=== PATIENT | male | born 1965 | race Caucasian/White ===

== ENCOUNTER 2024-05-21 06:32 | Emergency (ER) | payer OTHER, MEDICARE, SELFPAY ==
--- NOTE | ~2024-05-21 | XR_ITS ---
CLINICAL HISTORY: back pain Exam: AP, lateral, spot lateral views of the lumbar spine. Comparison: December 27, 2022. Findings: Minimal convex left lower lumbar curvature as seen previously. Lateral view demonstrates straightening of the normal lumbar lordosis. Severe degenerative disc disease at L4-5 and L5-S1 with disc space narrowing, discogenic sclerosis, and osteophytic ridging. Moderate degenerative disc disease at L3-4. Moderate to severe facet joint degenerative change from L2-3 inferiorly. No fracture. Impression: Multilevel degenerative disc disease and degenerative facet disease as above. This document has been electronically signed by: Feliciano Ko MD on 05/21/2024 08:48:31
[2024-05-21 06:39] VITALS: BP 142/85; PULSE 75; RESP 18; TEMP 36.8; O2SAT 98; BMI 37.2
--- NOTE | 2024-05-21 07:55 | ED_ITS ---
HPI - Back Pain/Injury General Chief Complaint: Back Pain/Injury Stated Complaint: sciatica, left leg pain Time Seen by Provider: 05/21/24 07:55 Source: patient Mode of arrival: ambulatory Limitations: no limitations History of Present Illness ED Provider: DR. Bennett HPI Narrative: 58 year came in for evaluation of low back and left buttock cheek pain for 5 days, pain is getting worse shooting down to the left leg, patient was seen by PCP last week for the back pain had CT chest , abdomen and pelvis ordered by PCP the was done at [facility] last week patient was told by the PCP that CT was okay. Patient had back surgery many years ago as per patient multiple level of a disc disease in the lumbar spine since then patient is on oxycodone for pain control, history of prostate cancer. Patient declined any fever, no urinary incontinence, normal urination, normal bowel movement this morning, no weakness, slight numbness affecting the left thigh. No history of IV drug use. No dysuria, no frequency urination. Related Data Previous Rx's ?Medication ?Instructions ?Recorded oxycodone 5 mg capsule 5 mg PO Q8H PRN pain 3 days #9 caps 12/15/22 cyclobenzaprine 10 mg tablet 10 mg PO TID PRN muscle spasm #15 12/27/22 tabs dexamethasone 4 mg tablet 4 mg PO BID #6 tabs 12/27/22 Allergies Allergy/AdvReac Type Severity Reaction Status Date / Time No Known Allergies Allergy Verified 05/21/24 06:40 Review of Systems Review of Systems: All other systems are reviewed and are negative Constitutional: Reports as per HPI and Reports no additional constitutional complaints Eyes: Reports as per HPI and Reports no additional eye complaints Reports system reviewed and no additional complaints, except as documented Cardiovascular: Reports as per HPI and Reports no additional cardiovascular complaints Respiratory: Reports as per HPI and Reports no additional respiratory complaints Gastrointestinal: Reports as per HPI and Reports no additional gastrointestinal complaints Genitourinary: Reports no additional female genitourinary complaints Musculoskeletal: Reports no additional musculoskeletal complaints Skin/Breast: Reports system reviewed and no additional complaints, except as docu Psychiatric: Reports no additional psychiatric complaints Endocrine: Reports no additional endocrine complaints Hematologic/Lymphatic: Reports no additional hematologic/lymphatic complaints Allergic/Immunologic: Reports no additional allergic/immunologic complaints Reports system reviewed and no additional complaints, except as documented and Reports Abnormal speech present [facility] Social History Social History Advance Directives: No Advance Directives Information Provided: Yes Do you have a plan to hurt others: No Plan Physical Exam Vital Signs: Vital Signs: Last Vital Signs Temp 98.2 F 05/21/24 06:39 Pulse 75 05/21/24 06:39 Resp 18 05/21/24 06:39 BP 142/85 H 05/21/24 06:39 Pulse Ox 98 05/21/24 06:39 O2 Del Method Room Air 05/21/24 06:39 BMI result Body Mass Index 37.2 Vital signs have been reviewed and appear to be correct. Blood pressure elevated. Heart rate normal. Respiratory rate normal. Temperature normal. Oxygen saturation normal. Appearance: Alert. Oriented X3. No acute distress. Head: Normal external exam. Normocephalic. Atraumatic. No Maciel signs noted. No raccoon eyes noted Eyes: PERRLA. EOMI. Conjunctiva and sclera normal. Eyelids normal. ENT: TM's Normal. Pharynx normal. Uvula midline. Moist mucous membranes. No trismus noted. No drooling noted. No muffled voice noted. Neck: Normal inspection. Neck supple. FROM. No adenopathy. Thyroid Normal. No meningeal signs. No neck mass noted. CVS: Normal heart rate and rhythm. Heart sound normal. No murmurs noted. Pulses normal throughout. Respiratory: No respiratory distress. Painless inspiration. Breath sounds normal. No wheezes/rales/rhonchi noted. Chest nontender. No accessory muscle usage noted or decreased air movement noted. Abdomen: Soft and nontender. Bowel sounds normal in all 4 quadrants. No distention noted. No organomegaly noted. No visible injury noted. Back: No CVA tenderness. Full range of motion noted. Skin: Skin warm and dry. Normal skin color. Normal skin turgor. No rashes/lesions/lacerations noted. Extremities: No lower extremity edema. Extremities exhibit normal range of motion. Extremities nontender. Neuro: Mental status: Normal attention, orientation, memory, and affect. Cranial nerves: Pupils are equal, round and reactive to light, EOMI, visual gomez are fall, face is symmetric, facial sensations are normal. Motor examination normal muscle tone, strength to 4 extremities. able to ambulate on both toes and heels. DTR are +2, planter's are flexor. Sensory exam; normal coordination, no ataxia, gait stable. Cerebellar exam: [id number] and [id number] is normal. Extrapyramidal system: No tremors, no rigidity with normal facial expressions. Pronator drift not present Course Reevaluation(s) Reevaluation #1: CT chest / abdomen / pelvis done on 05/13/2024 at [facility] official report: No evidence of intra-abdominal or retroperitoneal soft tissue metastases, new skeletal lesions, or other significant intervals change from a 06/18/2023. Time: 08:40 Reevaluation #2: patient feels much better able to ambulate in the emergency department with less pain, perianal sensation is intact, able to ambulate on toes heels, a no symptoms or signs of cauda equina, likely diagnosis is left lumbar radiculopathy. he is a chronic narcotic patient, patient was instructed to follow-up with his PCP if pain is worse. Time: 09:23 Medications Administered Discontinued Medications Generic Name Dose Route Start Last Admin Trade Name Freq PRN Reason Stop Dose Admin Hydromorphone HCl 2 mg 05/21/24 08:03 05/21/24 08:18 Hydromorphone Hcl 2 Mg/Ml Vial IM 05/21/24 08:04 2 mg ONCE ONE Administration Protocol Ketorolac Tromethamine 15 mg 05/21/24 08:03 05/21/24 08:18 Ketorolac Tromethamine 15 Mg/Ml Vial IM 05/21/24 08:04 15 mg ONCE ONE Administration Medical Decision Making Differential Diagnosis Differential Diagnoses: The differential diagnosis associated with the presentation includes ( lumbar radiculopathy, cauda equina syndrome, epidural abscess, pyelonephritis.) Admission/Observation Consideration of admission/observation: Escalation of care including admission/observation considered Lab Data MDM Lab Attestation statement: I reviewed the patient's lab results. Labs: Lab Results 05/21/24 Range/Units 08:46 Urine Color Yellow Urine Appearance Clear Urine pH 7.0 (5.0-9.0) Ur Specific [place] 1.010 (1.005-1.025) Urine Protein Negative (Neg-Trace) mg/dL Urine Glucose (UA) Negative (Negative) mg/dL Urine Ketones Negative (Negative) mg/dL Urine Blood Negative (Negative) Urine Nitrite Negative (Negative) Ur Leukocyte Esterase Negative (Negative) Independent Interpretation I performed an independent interpretation of an: Plain X-Ray ( lumbar spine:Multilevel degenerative disc disease and degenerative facet disease as above.) Radiology Impression Discussion of test interpretation with radiology: I have reviewed the radiologist's reading. Discharge Plan Discharge Clinical Impression: Lumbar radiculopathy Patient Disposition: Home, Self-Care Instructions: Lumbar Radiculopathy (ED) Prescriptions: No Action oxycodone 5 mg capsule 5 mg PO Q8H PRN (Reason: pain) 3 Days Qty: 9 0RF Rx Instructions: Partial Fill upon patient request. cyclobenzaprine 10 mg tablet 10 mg PO TID PRN (Reason: muscle spasm) Qty: 15 0RF dexamethasone 4 mg tablet 4 mg PO BID Qty: 6 0RF Referrals: Amee Sarabia MD [Primary Care Provider] - Print Language: Sri Lankan
[2024-05-21] MEDS: Ketorolac Tromethamine 15 MG/ML VIAL IM (08:18)
[2024-05-21] MEDS: HYDROmorphone HCl 2 MG/ML VIAL IM (08:18)
[2024-05-21 08:57] LABS: Appearance Urine Clear; Color Urine Yellow; Glucose Urine UA Negative (Negative); Leukocyte Esterase Urine Negative (Negative); Nitrite Urine Negative (Negative); Urine Blood Negative (Negative); Urine Ketones Negative (Negative); Urine Protein Negative (Neg-Trace)
[2024-05-21 10:00] VITALS: BP 133/79; PULSE 66; RESP 16; TEMP 36.6; O2SAT 94
== END 2024-05-21 10:01 | disposition home or self-care (01) ==
PROVIDERS: Emergency Provider Emergency Medicine; PCP Internal Medicine
DX: M54.16 Radiculopathy, lumbar region (principal); M54.42 Lumbago with sciatica, left side; C61 Malignant neoplasm of prostate; C79.51 Secondary malignant neoplasm of bone
CPT/HCPCS: 72100; 81003; 96372; 99283; 99284; J1171; J1885

== ENCOUNTER → 2024-05-21 08:14 | Outpatient (BNV) | payer OTHER, MEDICARE, SELFPAY | PROVIDERS: Emergency Provider Emergency Medicine; PCP Internal Medicine; Visit Provider Radiology Diagnostic Radiology | DX: M51.360 Other intervertebral disc degeneration, lumbar region with discogenic back pain only (principal) | CPT/HCPCS: 72100 ==

== ENCOUNTER 2024-05-22 01:07 | Emergency (ER) | payer OTHER, MEDICARE, SELFPAY ==
[2024-05-22 01:11] VITALS: BP 132/72; PULSE 68; RESP 16; TEMP 36.9; O2SAT 96; BMI 37.0
--- NOTE | 2024-05-22 02:13 | ED.BACK ---
HPI - Back Pain/Injury General Chief Complaint: Back Pain/Injury Stated Complaint: left leg numb Time Seen by Provider: 05/22/24 02:12 Source: patient Mode of arrival: ambulatory Limitations: no limitations History of Present Illness ED Provider: HPI Narrative: Patient with history of chronic low back pain on oxycodone was seen here yesterday for the same comes here as the pain is coming back radiating to the left leg as in the past no recent injury Related Data Previous Rx's ?Medication ?Instructions ?Recorded oxycodone 5 mg capsule 5 mg PO Q8H PRN pain 3 days #9 caps 12/15/22 cyclobenzaprine 10 mg tablet 10 mg PO TID PRN muscle spasm #15 12/27/22 tabs dexamethasone 4 mg tablet 4 mg PO BID #6 tabs 12/27/22 cyclobenzaprine 10 mg tablet 10 mg PO Q8H #20 tabs 05/22/24 Allergies Allergy/AdvReac Type Severity Reaction Status Date / Time No Known Allergies Allergy Verified 05/22/24 01:14 Review of Systems Review of Systems: Yes all other systems are reviewed and are negative [facility] Social History Social History Smoked in Last 30 Days: No Use of substances other than those prescribed or required for medical reasons: No Advance Directives: No Do you have a plan to hurt others: No Plan Physical Exam Vital Signs: Vital Signs: Last Vital Signs Temp 98.5 F 05/22/24 03:05 Pulse 68 05/22/24 03:05 Resp 16 05/22/24 03:05 BP 132/72 05/22/24 03:05 Pulse Ox 96 05/22/24 03:05 O2 Del Method Room Air 05/22/24 03:05 BMI result Body Mass Index 37.0 Appearance: Alert. Oriented X3. No acute distress. Eyes: PERRLA, No Nystagmus ENT: Pharynx normal. Oral Mucosa moist Neck: Normal inspection. Neck supple. CVS: Normal heart rate and rhythm. Pulses normal. Respiratory: No respiratory distress. Equal air entry bilateral, no wheezing/rales/rhonchi Abdomen: Soft and nontender. Bowel sounds are present, no mass palpable, no CVA tenderness Skin: Skin warm and dry. Normal skin color. Normal skin turgor. Extremities: No lower extremity edema. No calf tenderness back: Diffuse tenderness in lumbar area SLR positive left leg Neuro: Oriented X 3. No motor deficit. No sensory deficit.No cerebellar signs , cranial nerves II-XII intact Medications Administered Discontinued Medications Generic Name Dose Route Start Last Admin Trade Name Freq PRN Reason Stop Dose Admin Cyclobenzaprine HCl 10 mg 05/22/24 02:21 05/22/24 02:46 Cyclobenzaprine Hcl 10 Mg Tablet PO 05/22/24 02:22 10 mg ONCE ONE Administration Ketorolac Tromethamine 60 mg 05/22/24 02:21 05/22/24 02:45 Ketorolac Tromethamine 60 Mg/2 Ml Vial IM 05/22/24 02:22 60 mg ONCE ONE Administration Medical Decision Making Medical Decision Making [facility] Narrative: Patient has chronic low back pain referred to pain clinic will give a course of muscle relaxants and patient is already taking oxycodone at home Discharge Plan Discharge Clinical Impression: Sciatica Patient Disposition: Home, Self-Care Instructions: Sciatica (ED) Additional Instructions: Continue pain medication Take muscle relaxant as prescribed Follow up with pain clinic Prescriptions: New cyclobenzaprine 10 mg tablet 10 mg PO Q8H Qty: 20 0RF No Action oxycodone 5 mg capsule 5 mg PO Q8H PRN (Reason: pain) 3 Days Qty: 9 0RF Rx Instructions: Partial Fill upon patient request. cyclobenzaprine 10 mg tablet 10 mg PO TID PRN (Reason: muscle spasm) Qty: 15 0RF dexamethasone 4 mg tablet 4 mg PO BID Qty: 6 0RF Referrals: Timothy Mas MD [Physician] - 2 weeks Interventions: ED Discharge Assessment Last Done: 05/22/24 03:05 Discharge Date/Time: 05/22/24 03:05 Print Language: Portuguese
[2024-05-22] MEDS: Ketorolac Tromethamine 60 MG/2 ML VIAL IM (02:45)
[2024-05-22] MEDS: Cyclobenzaprine HCl 10 MG TABLET PO (02:46)
[2024-05-22 03:05] VITALS: BP 132/72; PULSE 68; RESP 16; TEMP 36.9; O2SAT 96
== END 2024-05-22 03:05 | disposition home or self-care (01) ==
PROVIDERS: Emergency Provider Internal Medicine; PCP Internal Medicine
DX: M54.42 Lumbago with sciatica, left side (principal)
CPT/HCPCS: 96372; 99284; J1885

== ENCOUNTER 2024-05-30 10:06 | Outpatient (AMB) | payer OTHER, MEDICARE, SELFPAY ==
--- NOTE | 2024-05-30 10:07 | A.OFFVIS_ITS ---
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 He reports that this pain started 3 weeks ago. He woke up from this pain. Because of his pain he can not sleep normally can not do activities of daily living he can not take care of himself but he can not function normally. He is on permanent disability. According to the patient he had unknown level of lumbar fusion. He had multiple level disc degeneration of the lumbar spine. He also was diagnose in 2019 with prostate cancer and he was treated with robotic prostatectomy, and after that surgery his PSA numbers continued to grow and he go to [facility] radiology department's where he received radiation for for the metastasis in the lumbar spine. He is currently taking oxycodone 5 mg 4 times a day for his pain. In terms of tissue damage he describes his pain as stabbing, lancinating, pinching, cramping, crushing, dull, sore, hurting, aching, heavy sensation. The last examination of the abdominal and pelvic CT scan was done at [facility]. The results of this examination is not available for me. Apparently patient was told that results are okay. His past medical history significant for arthritis and asthma. Past surgical history significant for prostatectomy and lumbar surgery. He denies smoking cigarettes denies drinking alcohol drinks 2 cups of coffee a day and he denies recreational drugs. Review of Systems Const All systems reviewed & are unremarkable except as noted in HPI and below ENT Reports Normal hearing present Card Reports no additional complaints Resp Reports no additional complaints GI Reports no additional complaints Reports as per HPI Musc Reports as per HPI Neuro Reports no additional complaints, Reports Normal hearing present, Denies Abnormal speech present, Denies confusion and Denies Sensory deficit (Neuro) Psych Reports no additional complaints and Denies confusion Physical Exam Vital Signs: Last Vital Signs Pulse 95 05/30/24 10:13 BP 160/101 H 05/30/24 10:13 Pulse Ox 97 05/30/24 10:13 Oxygen Delivery Method Room Air 05/30/24 10:13 BMI result Body Mass Index 36.8 Const General: no acute distress; No confusion Nutritional Appearance: obese morbidly obese Orientation/consciousness: patient oriented x3 and No confusion Eyes General: appearance normal, both eyes and all related structures Pupils: Equal, round and reactive pupils present EOM: EOMs intact bilaterally Neck Neck: Yes full ROM Chest Chest palpation & inspection: normal inspection of the chest Resp Effort & Inspection: normal respiratory effort, able to speak in complete sentences, normal respiratory pattern, no audible wheezes and no cough Cardio Jugular venous distension: no JVD GI Inspection: Yes normal to inspection Back/Spine/Pelvis Other: There is tenderness on palpation in projection of paraspinal spinal region lumbar spine. In projection of L3-L4 and L5 spinous processes there is very thin very well-healed scar radiating previous surgery. There is no inflammation no swelling no redness around the scar. Able to stand on bilateral tiptoes in bilateral heels without difficulty. Reports numbness in the left lower extremity. SLR is positive on the left and equivocal on the right. Neuro General: patient oriented x3, gait normal and No confusion Cranial nerves: Yes CN's II-XII intact bilaterally, Yes Equal, round and reactive pupils present, Yes Normal hearing present and Yes Ability to bilaterally elevate shoulders present Speech: No Abnormal speech present Gait exam (Neuro): Normal gait present Motor exam (neuro): 5/5 motor strength present throughout Sensory Exam: No Sensory deficit (Neuro) Extrem General: No pedal edema Psych Speech and movement: Normal speech and movement present Affect: normal affect Attitude: cooperative Thought process: Normal thought process present Thought content: Normal thought content present Insight: Good insight present (Psych) Judgement: Good judgement present (Psych) Assessment & Plan Assessment & Plan (1) Postlaminectomy syndrome: Code(s): M96.1 - Postlaminectomy syndrome, not elsewhere classified Category: Medical (2) Prostate cancer metastatic to bone: Code(s): C61 - Malignant neoplasm of prostate; C79.51 - Secondary malignant neoplasm of bone Category: Medical (3) Lumbar radiculopathy: Code(s): M54.16 - Radiculopathy, lumbar region Category: Medical (4) Chronic pain syndrome: Code(s): G89.4 - Chronic pain syndrome Category: Medical Plan Kvng is 58 years old cancer patient who is suffering from prostate CA. he is suffering from radiculopathy of the lumbar spine. He has had metastasis in the lumbar spine which were treated with radiation. I believe in the situation we need to obtain MRI of the lumbar spine with and without contrast. I will see this patient in 1 month. To help his pain I will prescribe him gabapentin 600 mg t.i.d.. He also reported that ketorolac which was given to him in the emergency room gave him s ignificant pain relief. He also received Dilaudid intramuscularly as well. I explained to the patient that the Dilaudid injection was equivalent to his oxycodone however patient denies help from oxycodone. He denies help from NSAIDs he denies help from Tylenol. Stronger oral opioids could be offered to the patient to treat his pain once the diagnosis of the prostate CA metastasis will be established. Alternatively treatment of his pain can not be done with intrathecal drug delivery system pain pump. I will see this patient in 1 month. Hopefully by that time MRI will be ready. Orders: Orders MR lumbar spine wo/w con Today C61 - Malignant neoplasm of prostate, C79.51 - Secondary malignant neoplasm of bone, M96.1 - Postlaminectomy syndrome, not elsewhere classified Medications: New gabapentin 600 mg PO TID 30 days 90 tabs 8RF Patient Instructions: I here by testify that I spent 46 minutes in conversation with this patient as well as planning his care and organizing this note. Coding Level of Care Code New Pt Level 4 (26784) Diagnoses Postlaminectomy syndrome M96.1 Prostate cancer metastatic to bone C61; C79.51 Lumbar radiculopathy M54.16 Chronic pain syndrome G89.4
[2024-05-30 10:13] VITALS: BP 160/101; PULSE 95; O2SAT 97; BMI 36.8
== END 2024-05-30 10:51 | disposition home or self-care (01) ==
PROVIDERS: PCP Internal Medicine; Visit Provider Anesthesiology
DX: M96.1 Postlaminectomy syndrome, not elsewhere classified (principal); C61 Malignant neoplasm of prostate; C79.51 Secondary malignant neoplasm of bone; M54.16 Radiculopathy, lumbar region; G89.4 Chronic pain syndrome
CPT/HCPCS: 99204

== ENCOUNTER → 2024-05-30 10:06 | Outpatient (BNVA) | payer OTHER, MEDICARE, SELFPAY | PROVIDERS: PCP Internal Medicine; Visit Provider Anesthesiology ==

== ENCOUNTER 2024-06-18 05:40 | Emergency (ER) | payer OTHER, MEDICARE, SELFPAY ==
[2024-06-18 05:48] VITALS: BP 125/69; PULSE 82; RESP 18; TEMP 36.6; O2SAT 96; BMI 36.6
--- NOTE | 2024-06-18 07:04 | ED.BACK ---
HPI - Back Pain/Injury General Chief Complaint: Back Pain/Injury Stated Complaint: sciatica left leg Time Seen by Provider: 06/18/24 07:01 Source: patient and old records reviewed Mode of arrival: ambulatory Limitations: no limitations History of Present Illness ED Provider: INGRIS GARRISON Narrative: 58 yo male with PMH of chronic pain, chronic back pain and issues that are managed by pain management and his prostate cancer to the spine which he underwent XRT for. He has been taking gabapentin, oxycodone, and flexeril. He has been dealing with worsening pain to the L leg and numbness tingling. He has no b/b incontinence no saddle anesthesia. He was sent for MRI given his hx and had that done on 06/16. It was very limited but there were no reports of cord compression though he has concerning lesions for mets at L 2, L4, S1 - nonspecific and only able to assess T2 signal. He is not on blood thinners. He states he had this numbness and symptoms prior to his MRI but he cannot get comfortable and sleep. Last time he came here he had injections which were very helpful. MD elicited complaint: back pain and back injury Pertinent past history: prior back pain Onset (ago): week(s) (3+) Timing: constant Severity: severe Similar Symptoms Previously: Yes Quality: sharp and aching Location: lumbar spine (buttock) Radiation: left upper leg and left leg below the knee Exacerbating factors: movement Relieving factors: immobilization Associated symptoms: numbness Treatments prior to arrival: prescription analgesics and other medications Work related injury: No Related Data Previous Rx's ?Medication ?Instructions ?Recorded oxycodone 5 mg capsule 5 mg PO Q8H PRN pain 3 days #9 caps 12/15/22 dexamethasone 4 mg tablet 4 mg PO BID #6 tabs 12/27/22 cyclobenzaprine 10 mg tablet 10 mg PO Q8H #20 tabs 05/22/24 gabapentin 600 mg tablet 600 mg PO TID 30 days #90 tabs 05/30/24 Allergies Allergy/AdvReac Type Severity Reaction Status Date / Time No Known Allergies Allergy Verified 06/18/24 05:52 Review of Systems Review of Systems: Constitutional : No Weight loss, No Fever, No Chills, ENT/Mouth : No Hearing loss, No Ear Pain, No Nasal Congestion, No Sinus Pain, No Hoarseness, No sore throat, No Rhinorrhea, No Swallowing Difficulty Cardiovascular : No Chest Pain, No SOB Respiratory : No Cough, No Dyspnea Gastrointestinal : No Nausea, No Vomiting, No Diarrhea, No abdominal Pain, No Hematochezia, No Melena Genitourinary : No Dysuria, No Urinary Frequency, No Hematuria, No Urinary Incontinence, Musculoskeletal : positive back pain Skin : No Skin Lesions, No rash Neuro : No Weakness, pos Numbness, No Paresthesias, no loss of bowel or bladder incontinence, no saddle anesthesia All other systems reviewed are negative. [facility] Past Medical History Attestation statement: The following information was validated with the patient. Source: old records reviewed Medical History Postlaminectomy syndrome Prostate cancer metastatic to bone Chronic pain syndrome Social History Social History Alcohol intake: never Smoked in Last 30 Days: No Use of substances other than those prescribed or required for medical reasons: No Advance Directives: No Advance Directives Information Provided: Yes Do you have a plan to hurt others: No Plan Physical Exam Vital Signs: Vital Signs: Last Vital Signs Temp 97.8 F 06/18/24 05:48 Pulse 82 06/18/24 05:48 Resp 18 06/18/24 05:48 BP 125/69 06/18/24 05:48 Pulse Ox 96 06/18/24 05:48 O2 Del Method Room Air 06/18/24 05:48 BMI result Body Mass Index 36.6 Appearance: Alert. Oriented X3. No acute distress. Eyes: Pupils equal, round and reactive to light. ENT: Pharynx normal. Neck: Normal inspection. Neck supple. CVS: Normal heart rate and rhythm. Pulses normal. Respiratory: No respiratory distress. Breath sounds normal. Abdomen: Soft and nontender. Back: L buttock pain noted Skin: Skin warm and dry. Normal skin color. Normal skin turgor. Extremities: No lower extremity edema. No calf ttp Neuro: Oriented X 3. No motor deficit. No sensory deficit. R leg L5/5 5/5 intact, SILT intact, 2+ DTR, L leg SILT intact but L5 is 4/5 and 1+ DTR no clonus noted, he is able to raise the leg without issue Medications Administered Discontinued Medications Generic Name Dose Route Start Last Admin Trade Name Yesenia PRN Reason Stop Dose Admin Dexamethasone Sodium Phosphate 8 mg 06/18/24 07:33 06/18/24 07:48 Dexamethasone Sod Phosphate 4 Mg/Ml Vial IM 06/18/24 07:34 8 mg ONCE ONE Administration Hydromorphone HCl 2 mg 06/18/24 07:33 06/18/24 07:48 Hydromorphone Hcl 2 Mg/Ml Vial IM 06/18/24 07:34 2 mg ONCE ONE Administration Protocol Ketorolac Tromethamine 30 mg 06/18/24 07:33 06/18/24 07:48 Ketorolac Tromethamine 30 Mg/Ml Vial IM 06/18/24 07:34 30 mg ONCE ONE Administration Medical Decision Making Medical Decision Making [facility] Narrative: 58 yo male with PMH of chronic pain, chronic back pain and issues that are managed by pain management and his prostate cancer to the spine which he underwent XRT now here with abnormal MRI but nothing reported to show cord compression he has had these symptoms since his recent visit to pain management prior to MRI - weakness and numbness though I do not see that recorded. I am going to treat his pain first and if no improvement in exam will attempt better MRI and visualization with better pain control as it was a limited study. Differential Diagnosis Differential Diagnoses: The differential diagnosis associated with the presentation includes mets, chronic pain, sciatica, radiculopathy Admission/Observation Consideration of admission/observation: Escalation of care including admission/observation considered given is decreased DTR and plantarflexion I have offered a MRI. He refuses he states he wants to follow up with his own doctors. He is aware his recent MRI was not conclusive. He states if anything worsens he will return. He notes he has had similar issues in past and they have resolved. He is coherent and making sense. Encouraged to return if he changes his mind External Record Review External record reviewed: Inpatient record, Outpatient record, Prior outpatient labs and Prior outpatient radiology Tests considered The following testing was considered but not selected: MRI of spine but he refuses. Discharge Plan Discharge Clinical Impression: Lumbar radiculopathy Sciatica Qualifiers: Laterality: left Qualified Code(s): M54.32 - Sciatica, left side Patient Disposition: Home, Self-Care Instructions: Back Pain (ED), Lumbar Radiculopathy (ED), Sciatica (ED) Additional Instructions: you were offered a MRI but declined please return as discussed for any concerns you need to call your doctors Thursday as soon as possible return for any worsening symptoms or concerns. Prescriptions: No Action oxycodone 5 mg capsule 5 mg PO Q8H PRN (Reason: pain) 3 Days Qty: 9 0RF Rx Instructions: Partial Fill upon patient request. dexamethasone 4 mg tablet 4 mg PO BID Qty: 6 0RF cyclobenzaprine 10 mg tablet 10 mg PO Q8H Qty: 20 0RF gabapentin 600 mg tablet 600 mg PO TID 30 Days Qty: 90 8RF Print Language: Czech
[2024-06-18] MEDS: Ketorolac Tromethamine 30 MG/ML VIAL IM (07:48)
[2024-06-18] MEDS: HYDROmorphone HCl 2 MG/ML VIAL IM (07:48)
[2024-06-18] MEDS: dexAMETHasone sod phosphate 4 MG/ML VIAL 8 MG IM (07:48)
[2024-06-18 09:31] VITALS: BP 125/69; PULSE 82; RESP 18; TEMP 36.6; O2SAT 96
== END 2024-06-18 09:32 | disposition home or self-care (01) ==
PROVIDERS: Emergency Provider Emergency Medicine; PCP Internal Medicine
DX: M54.42 Lumbago with sciatica, left side (principal); Z79.899 Other long term (current) drug therapy
CPT/HCPCS: 96372; 99284; J1100; J1171; J1885

== ENCOUNTER 2024-06-22 12:48 | Outpatient (AMB) | payer OTHER, MEDICARE, SELFPAY ==
--- NOTE | 2024-06-22 13:00 | A.OFFVIS_ITS ---
Vital Signs 06/22/24 13:01 Height 5 ft 8 in Weight 240 lb BMI 36.5 BP 141/83 H Blood Pressure Location Lt brachial Position Sitting Respiration 16 Pulse 95 Pulse Source Pulse Oximeter Pulse Oximetry (%) 96 Oxygen Delivery Method Room Air Intake Visit Reasons: Review MRI results Russian Language Instructor Required: No Allergies No Known Allergies Allergy (Verified 06/22/24 13:02) Medication List - Last Reconciled 06/22/24 by Verena Gonzales LPN cyclobenzaprine 10 mg PO Q8H dexamethasone 4 mg PO BID gabapentin 600 mg PO TID 30 days oxycodone 5 mg PO Q8H PRN 3 days HPI Comments Details: Kvng is very pleasant 58 years old gentleman a prostate cancer patient who is suffering from metastasis into his lumbar vertebras. He also had surgery on his lumbar spine in the distant past and he has a fusion of the He received several courses of radiation therapy of the lumbar spine which results in some improvement of his painful condition. He takes oxycodone 5 mg 4 times a day and also he takes 600 mg 3 times a day and he reports that on this regimen his pain is moderately controlled however he reports that he can not sleep at night. I explained to him that the best way to treat his pain would be intrathecal pain pump. He needs to go to psychological evaluation. I will try to schedule the psychological evaluation in the office because the patient does not have computer at home. As soon as he will past psychological evaluation we will be scheduling the trial. Originally I am planning to do trial with bupivacaine but addition of baclofen and clonidine could be introduced later on in therapy to improve his pain condition. Also I would like to contact [facility] oncology office we need to receive from them the longevity perspective on this patient. MRI of this patient demonstrated multiple metastasis in the lumbar spine. He is going for scan of the metastasis on 07/02/2024 this will show the spread of metastasis all over the body. His PSA numbers are unknown to me. [facility] Medical History Postlaminectomy syndrome Prostate cancer metastatic to bone Chronic pain syndrome Social History Alcohol intake: never Review of Systems Const All systems reviewed & are unremarkable except as noted in HPI and below ENT Reports Normal hearing present Neuro Reports Normal hearing present, Denies Abnormal speech present, Denies confusion and Denies Sensory deficit (Neuro) Psych Denies confusion Physical Exam Vital Signs: Last Vital Signs Pulse 95 06/22/24 13:01 Resp 16 06/22/24 13:01 BP 141/83 H 06/22/24 13:01 Pulse Ox 96 06/22/24 13:01 Oxygen Delivery Method Room Air 06/22/24 13:01 BMI result Body Mass Index 36.5 Const General: no acute distress; No confusion Nutritional Appearance: obese morbidly obese Orientation/consciousness: patient oriented x3 and No confusion Eyes General: appearance normal, both eyes and all related structures Pupils: Equal, round and reactive pupils present EOM: EOMs intact bilaterally Neck Neck: Yes full ROM Chest Chest palpation & inspection: normal inspection of the chest Resp Effort & Inspection: normal respiratory effort, able to speak in complete sentences, normal respiratory pattern, no audible wheezes and no cough Cardio Jugular venous distension: no JVD GI Inspection: Yes normal to inspection Back/Spine/Pelvis Other: There is tenderness on palpation in projection of paraspinal spinal region lumbar spine. In projection of L3-L4 and L5 spinous processes there is very thin very well-healed scar radiating previous surgery. There is no inflammation no swelling no redness around the scar. Able to stand on bilateral tiptoes in bilateral heels without difficulty. Reports numbness in the left lower extremity. SLR is positive on the left and equivocal on the right. Neuro General: patient oriented x3, gait normal and No confusion Cranial nerves: Yes CN's II-XII intact bilaterally, Yes Equal, round and reactive pupils present, Yes Normal hearing present and Yes Ability to bilaterally elevate shoulders present Speech: No Abnormal speech present Gait exam (Neuro): Normal gait present Motor exam (neuro): 5/5 motor strength present throughout Sensory Exam: No Sensory deficit (Neuro) Extrem General: No pedal edema Psych Speech and movement: Normal speech and movement present Affect: normal affect Attitude: cooperative Thought process: Normal thought process present Thought content: Normal thought content present Insight: Good insight present (Psych) Judgement: Good judgement present (Psych) Results Reviewed Results Reviewed: MRI lumbar spine ray us Indication postlaminectomy syndrome malignant neoplasm of prostate secondary malignant neoplasm of the bone. Findings: Please note that patient could not tolerate this can due to severe pain. Only sagittal T2 weighted sequence were obtained. Limited evaluation. Alignment and curvature: Mild grade 1 retrolisthesis L5 on S1 unchanged. Conus and cauda equina: The conus terminates at around L1 level. Vertebral body heights: No significant height loss. Marrow signal: Please note that the marrow signal can not be reliably assess due to lack of T1 weighted sequences. However there is abnormal T2 hyperintense signal within the L4 vertebral body extending to the posterior element which is new compared to prior exam and highly suspicious of marrow replacing process such as metastasis. There is a new focus of T2 hyperintense signal in the left superior posterior aspect of L2 vertebral body extending to the left pedicle which is also new compared to prior examined suspicious for marrow replacing lesion. There is a new T2 hyperintense signal within S1 vertebral body nonspecific. Discs: Mild multilevel degenerative disc desiccation with loss of disc height at L4-5 and L5-S1, interval slightly progressed since prior exam. Is multilevel disc bulges throughout the lumbar levels most pronounced at L3-L4 resulting in up to mild spinal canal stenosis. This is inadequately us as due to lack of axial sequences. There is multilevel foraminal stenosis most pronounced at right L4-5 which moderate to severe stenosis and a left L5-S1 with least moderate stenosis. These findings are interval slightly progressed since the prior exam. Impression: Patient could not tolerate the scan due to severe pain. Only sagittal T2 weighted sequences were obtained. Limited evaluation. Marrow signal can not be reliably assessed due to lack of T1 weighted sequence. However there is area of abnormal T2 hyperintense signal most pronounced at L4 vertebra new compared to prior MRI of 05/25/2019 and highly suspicious for marrow replacing process such as metastasis. Inadequately assessed multilevel degenerative changes of the lamina spine interval slightly progressed since 2020. Findings are most pronounced at L4-5 with moderate to severe right foraminal stenosis and left L5-S1 and least moderate left foraminal stenosis. Assessment & Plan Assessment & Plan (1) Postlaminectomy syndrome: Code(s): M96.1 - Postlaminectomy syndrome, not elsewhere classified Category: Medical (2) Prostate cancer metastatic to bone: Code(s): C61 - Malignant neoplasm of prostate; C79.51 - Secondary malignant neoplasm of bone Category: Medical (3) Lumbar radiculopathy: Code(s): M54.16 - Radiculopathy, lumbar region Category: Medical (4) Chronic pain syndrome: Code(s): G89.4 - Chronic pain syndrome Category: Medical Plan Kvng is 58 years old cancer patient who is suffering from prostate CA. he is suffering from radiculopathy of the lumbar spine. He has had metastasis in the lumbar spine which were treated with radiation. I believe in the situation we need to obtain MRI of the lumbar spine with and without contrast. I will see this patient in 1 month. To help his pain I will increase gabapentin to 800 mg 4 times a day. This is maximum dose. H he is on oxycodone 5 mg 4 times a day. Intrathecal pain pump non opioid in nature was discussed in the patient. In my opinion we can start with bupivacaine pump pump with the addition of baclofen and or clonidine. I will invite this patient psychological evaluation in the office. We also need to obtain paper from oncology office about longevity of this patient. Medications: New gabapentin 800 mg PO TID 30 days 90 tabs 8RF Discontinued gabapentin Discontinued Reason: Doctor's Order 600 mg PO TID 30 days 90 tabs 8RF Patient Instructions: I hereby testify that spent 30 minutes in conversation with this patient as well as planning his care and organizing this note. Coding Level of Care Code Est Pt Level 4 (57102) Diagnoses Postlaminectomy syndrome M96.1 Prostate cancer metastatic to bone C61; C79.51 Lumbar radiculopathy M54.16 Chronic pain syndrome G89.4
[2024-06-22 13:01] VITALS: BP 141/83; PULSE 95; RESP 16; O2SAT 96; BMI 36.5
--- OUTSIDE RECORDS SUMMARY | 2024-06-22 15:09 | XMS_ITS | Encounter Summary ---
Author Organization [facility] Address [address] [place] [id number] Care Team Providers Care Lead Accountant Name Role Phone Amee Sarabia MD Primary Care Provider Reason for Visit * Reason Comments Results Request Encounter Details Date Type Department Care Team ([facility] st Contact Info) Description 01/23/2020 Telephone [facility] Urologic Surgery [address] [phone] Raj Rascon MD [address] [address] Results Request Social History Tobacco Use Types Packs/Day Years Used Date Smoking Tobacco: Never Smokeless Tobacco: Never Alcohol Use Standard Drinks/Week Comments Not Currently 0 (1 standard drink = 0.6 oz pur e alcohol) Sex and Gender Information Value Date Recorded Sex Assigned at Not on file Legal Sex Male 4:15 PM EDT Gender Identity Not on file Sexual Orientation Not on file COVID-19 Exposure Response Date Recorded In the last month, have you been in contact with someone who was confirmed or suspected to have Coronavirus / COVID-19? No / Unsure 01/18/2020 3:41 PM EST documented as of this encounter Miscellaneous Notes * Telephone Encounter - Ene Ramírez RN - 01/27/2020 8:56 AM EST Returned pt's call, no answer, LM to call back office at earliest convenience. Ene Ramírez RN 01/27/2020 8:56 AM * Telephone Encounter - Ene Ramírez RN - 01/24/2020 5:08 PM EST Spoke to pt and informed him that labs are still pending from [facility]. He wants to know about Lupron injections, explained that if pt continues with injections, he will no longer have sperm to possibly have retrieved for fertility. Ene Ramírez 01/24/2020 5:10 PM documented in this encounter Plan of Treatment Not on file documented as of this encounter Visit Diagnoses Not on filedocumented in this encounter Care Teams Lead Accountant Relationship Specialty Start Date End Date Amee Sarabia MD [address] [place] [phone] PCP - General Internal Medicine 12/30/19 documented as of this encounter
--- OUTSIDE RECORDS SUMMARY | 2024-06-22 15:09 | XMS_ITS | Encounter Summary ---
Author Organization [facility] Address [address] [place] [id number] Care Team Providers Care Oracle Business Intelligence Developer Name Role Phone Amee Sarabia MD Primary Care Provider Reason for Visit * Reason Comments Advice Only [email or web address] Encounter Details Date Type Department Care Team ([facility] Contact Info) Description 01/20/2020 Telephone [facility] Urologic Surgery [address] [phone] Raj Rascon MD [address] [address] Advice Only ([place]) Social History Tobacco Use Types Packs/Day Years [...] PM EST documented as of this encounter Plan of Treatment Not on file documented as of this encounter Visit Diagnoses Not on filedocumented in this encounter Care Teams Oracle Business Intelligence Developer Relationship Specialty Start Date End Date Amee Sarabia MD [address] [place] [id number] PCP - General Internal Medicine 12/30/19 documented as of this encounter
--- OUTSIDE RECORDS SUMMARY | 2024-06-22 15:09 | XMS_ITS ---
Author Organization [facility] Address [address] [place] [address] Care Team Providers Care Certified Veterinary Technician Name Role Phone ELLE LUNSFORD Unavailable [phone] MEDICATIONS Medication SIG (Take, Route, Frequency, Duration) Notes Start Date End Date Status Montelukast Sodium 10 MG Oral for 30 Active Simvastatin 20 MG Oral for 30 Active Flovent HFA 220 MCG/ACT Inhalation for 30 Active Xtandi 40 MG Oral for 30 Activ e hydroCHLOROthiazide 12.5 MG Oral for 30 Active Naloxone HCl 4 MG/0.1ML INSTILL 4 MG SPR AY INTO BOTH NOSTRILS ONCE MAY REPEAT EVERY 2 TO 3 MINUTES UNTIL PATIENT RESPONDS Nasal for 2 Active oxyCODONE HCl 5 MG TAKE 1 TABLET BY MOUTH EVERY 6 HOURS NEEDED FOR PAIN Oral for 28 Active OxyCONTIN 10 MG Oral for 28 Ac tive Tamsulosin HCl 0.4 MG TAKE 2 CAPSULES BY MOUTH AT BEDTIME Oral for 30 Active Myrbetriq 50 MG Oral for 30 Ac tive Albuterol Sulfate HFA 108 (90 Base) MCG/ACT Inhalation for 25 Activ e Mounjaro 2.5 MG/0.5ML 2.5mg Subcutaneous weekly for 30 days PA approved 04/23/22- 4 04/22/2022 Active Mounjaro 5 MG/0.5ML INJECT 5MG UNDER THE SKIN EVERY WEEK for 28 Active Encounters Encounter Location Date Provider Diagnosis [place] [id number] [address] [address] 09/23/2023 ELLE ISATU Other obesity due to excess calories E66.09 ; BMI 38.0-38.9,adult Z68.38 ; Essential (primary) hypertension I10 ; Pure hypercholesterolemia, unspecified E78.00 ; Low back pain, unspecified M54.50 ; Other chronic pain G89.29 and Prostate cancer C61 ASSESSMENTS Encounter Date Diagnosis Assessment Notes Treatment Notes Treatment Clinical Notes Section Notes 09/23/2023 Other obesity due to excess calories (ICD-10 - E66.09) Acute Concerns/Problem List: 09/23/2023 Here to establish care for PCP services doing well on GLP/GIP Patient feels overall better, clothes are fitting better. Patient tolerating Mounjaro 10mg subq weekly well, no side effects reported and noted appetite suppression. Will increase from Mounjaro 10mg to Mounjaro 12.5mg. Reinforced lifestyle changes with diet and exercise at today's visit. Follow up in 4-6 weeks for further weight management. Patient has been found to be obese with a BMI of (38). Patient has class (2) obesity. We are a board certified obesity and weight management practice Patient has trialed behavioral modification, dietary restrictions and exercise for a minimum of 3 months Patient was reassured and welcomed to the practice. We discussed that we stress a hollistic medical approach with emphasis on lifestyle modification. Patient was informed that a healthy lifestyle with exercise and good eating habits can help reduce his risk of medical complications. He is explained that obesity increases his risk of diabetes, cardiovascular disease, or organ damage. We spent a lot of time discussing the relationship between food, exercise, sleep, mental health and obesity. Patient was counseled on the importance EATING local, organic food when possible. Patient was educated on clean 15 and dirty dozen. I provided information about reading books called The Food Rules by Shiv Garcia and Eat Fat Get Lean by Dr Kapil Del Rosario. Self education is important in the journey for weight management. Patient was offered diagnostic testing. We want to measure visceral adiposity, advanced body composition, adverse lipids, fatty acid balance, risk for heart disease and atherosclerosis, markers of inflammation and genetic susceptibility. Patient was counseled on weight management and was advised to lose weight using A. Meal Replacement Products Patient was educated on the replacement products called optifast. This is a good way of taking fixed amount of calories. It has been shown in studies to be ineffective weight management tool. This however has to be coupled with lifestyle intervention as well as laboratory data and EKG monitoring. It is impossible to know how a person will tolerate complete meal replacement. The side effects of meal replacement and weight loss could include syncopal attacks, dizziness, gallstones, potential cholecystectomy, possible heart attack and even . The benefits of meal replacement would be potential weight loss but no guarantees can be made. Meal replacement products are not covered by insurance. Once the patient has bought these products we cannot return them B. Lifestyle management which includes several strategies as below 1. Eat a low carbohydrate good fat good protein diet. Eliminate refined carbohydrates from the diet. Continue blood sugar and sugared beverages. Eat local organic when possible. Cook your own meals. Read food labels. None about healthy snacks. Portion control and food with low glycemic index 2. Exercise regularly. Try to get at least 6000 steps a day. Use a predominant to track activity level. Consider using apps like ActionRun, [employer]al, lose it, stick as needed for self-monitoring and weight management. Consider group exercises. Consider hiring a green jobs trainer. Regular exercise is hahn to sustainable health and prevents as a buffer against weight regain 3. Sleep is most important for healing. Tried to sleep at least 8 hours a night. A good quality sleep needs a sleep ritual with ideal room temperature of around 68. It might help to take a shower and have no electronics in the room and sleep in a very dark room without artificial light. Start her sleep routine and get up early in the morning and go to bed on time 4. Make a social connection. Surround yourself with positive people with positive energy. Connect with friends and family. 5. Get into the habit of meditating and mindfulness while doing everything. 6. Go outside and connect with nature. C. Prescription medications Patient was educated on the use of prescription medications for medical weight loss. This is a growing list and includes phentermine, Topamax,Qsymia, contrave, belviq and saxenda. All prescription medications could have side effects including but not limited to kidney stones, seizure disorder cardiac arrhythmias heart attack pancreatitis etc. etc.. Patient was encouraged to read the prescription insert and have coaching with their pharmacist and make an informed decision about taking medication and know that these medications are being prescribed with good intentions and we do not know how a patient would react to her medication. Sudden medications are FDA approved for weight loss and there is also off label use depending on patient's inability to afford medications in an attempt to lose weight D. Behavioral counseling was done to establish a relationship between food and an mood. Patient was provided information about local counseling and psychiatry and Dr Livingston at [facility]. We would like to cover regular topics and build on low glycemic eating exercise mindful eating, using yoga and meditation along with deep breathing and connecting with friends and family. E. MASS PAT reviewed, Patient's current medications were reviewed and opinion was given on medication that can cause weight gain and can be substituted F. Patient was assessed for risk with obesity including and not limiting to atherosclerosis heart disease stroke kidney disease, restrictive lung disease, irritable bowel syndrome and overall mortality. Risk of developing prediabetes diabetes and metabolic syndrome was discussed G. Therapeutic plan: We have decided to make therapeutic plan which would include choosing wisely on calories restricting portion getting active, tracking weight, getting good quality sleep and working on time management H. Patient will follow up in (4) weeks for weight management Total time spent today was 30 minutes of which greater than 50% was spent on coordinating and counseling Of note, some information is being carried forward from prior records for informational purposes only and is being cited so that efficiency, safety and quality of the patient's care is not compromised This note was prepared using voice recognition software and direct typing Please excuse inadvertent digital project manager or typing errors, or uncorrected word substitutions Although every attempt has been made by the provider to proofread this document, occasional misspellings and typographical errors may still be present Due to the previous pandemic, and the use of personal protective equipment (PPE) This may decrease voice recognition accuracy Inadvertent digital project manager errors may occur 09/23/2023 BMI 38.0-38.9,adult (ICD-10 - Z68.38) Acute Concerns/Problem List: 09/23/2023 Here to establish care for PCP services doing well on GLP/GIP Patient feels overall better, clothes are fitting better. Patient tolerating Mounjaro 10mg subq weekly well, no side effects reported and noted appetite suppression. Will increase from Mounjaro 10mg to Mounjaro 12.5mg. Reinforced lifestyle changes with diet and exercise at today's visit. Follow up in 4-6 weeks for further weight management. Patient has been found to be obese with a BMI of (38). Patient has class (2) obesity. We are a board certified obesity and weight management practice Patient has trialed behavioral modification, dietary restrictions and exercise for a minimum of 3 months Patient was reassured and welcomed to the practice. We discussed that we stress a hollistic medical approach with emphasis on lifestyle modification. Patient was informed that a healthy lifestyle with exercise and good eating habits can help reduce his risk of medical complications. He is explained that obesity increases his risk of diabetes, cardiovascular disease, or organ damage. We spent a lot of time discussing the relationship between food, exercise, sleep, mental health and obesity. Patient was counseled on the importance EATING local, organic food when possible. Patient was educated on clean 15 and dirty dozen. I provided information about reading books called The Food Rules by Shiv Garcia and Eat Fat Get Lean by Dr Kapil Del Rosario. Self education is important in the journey for weight management. Patient was offered diagnostic testing. We want to measure visceral adiposity, advanced body composition, adverse lipids, fatty acid balance, risk for heart disease and atherosclerosis, markers of inflammation and genetic susceptibility. Patient was counseled on weight management and was advised to lose weight using A. Meal Replacement Products Patient was educated on the replacement products called optifast. This is a good way of taking fixed amount of calories. It has been shown in studies to be ineffective weight management tool. This however has to be coupled with lifestyle intervention as well as laboratory data and EKG monitoring. It is impossible to know how a person will tolerate complete meal replacement. The side effects of meal replacement and weight loss could include syncopal attacks, dizziness, gallstones, potential cholecystectomy, possible heart attack and even . The benefits of meal replacement would be potential weight loss but no guarantees can be made. Meal replacement products are not covered by insurance. Once the patient has bought these products we cannot return them B. Lifestyle management which includes several strategies as below 1. Eat a low carbohydrate good fat good protein diet. Eliminate refined carbohydrates from the diet. Continue blood sugar and sugared beverages. Eat local organic when possible. Cook your own meals. Read food labels. None about healthy snacks. Portion control and food with low glycemic index 2. Exercise regularly. Try to get at least 6000 steps a day. Use a predominant to track activity level. Consider using apps like ActionRun, Tigglypal, lose it, stick as needed for self-monitoring and weight management. Consider group exercises. Consider hiring a green jobs trainer. Regular exercise is hahn to sustainable health and prevents as a buffer against weight regain 3. Sleep is most important for healing. Tried to sleep at least 8 hours a night. A good quality sleep needs a sleep ritual with ideal room temperature of around 68. It might help to take a shower and have no electronics in the room and sleep in a very dark room without artificial light. Start her sleep routine and get up early in the morning and go to bed on time 4. Make a social connection. Surround yourself with positive people with positive energy. Connect with friends and family. 5. Get into the habit of meditating and mindfulness while doing everything. 6. Go outside and connect with nature. C. Prescription medications Patient was educated on the use of prescription medications for medical weight loss. This is a growing list and includes phentermine, Topamax,Qsymia, contrave, belviq and saxenda. All prescription medications could have side effects including but not limited to kidney stones, seizure disorder cardiac arrhythmias heart attack pancreatitis etc. etc.. Patient was encouraged to read the prescription insert and have coaching with their pharmacist and make an informed decision about taking medication and know that these medications are being prescribed with good intentions and we do not know how a patient would react to her medication. Sudden medications are FDA approved for weight loss and there is also off label use depending on patient's inability to afford medications in an attempt to lose weight D. Behavioral counseling was done to establish a relationship between food and an mood. Patient was provided information about local counseling and psychiatry and Dr Livingston at [facility]. We would like to cover regular topics and build on low glycemic eating exercise mindful eating, using yoga and meditation along with deep breathing and connecting with friends and family. E. MASS PAT reviewed, Patient's current medications were reviewed and opinion was given on medication that can cause weight gain and can be substituted F. Patient was assessed for risk with obesity including and not limiting to atherosclerosis heart disease stroke kidney disease, restrictive lung disease, irritable bowel syndrome and overall mortality. Risk of developing prediabetes diabetes and metabolic syndrome was discussed G. Therapeutic plan: We have decided to make therapeutic plan which would include choosing wisely on calories restricting portion getting active, tracking weight, getting good quality sleep and working on time management H. Patient will follow up in (4) weeks for weight management Total time spent today was 30 minutes of which greater than 50% was spent on coordinating and counseling Of note, some information is being carried forward from prior records for informational purposes only and is being cited so that efficiency, safety and quality of the patient's care is not compromised This note was prepared using voice recognition software and direct typing Please excuse inadvertent digital project manager or typing errors, or uncorrected word substitutions Although every attempt has been made by the provider to proofread this document, occasional misspellings and typographical errors may still be present Due to the previous pandemic, and the use of personal protective equipment (PPE) This may decrease voice recognition accuracy Inadvertent digital project manager errors may occur 09/23/2023 Essential (primary) hypertension (ICD-10 - I10) Acute Concerns/Problem List: 09/23/2023 Here to establish care for PCP services doing well on GLP/GIP Patient feels overall better, clothes are fitting better. Patient tolerating Mounjaro 10mg subq weekly well, no side effects reported and noted appetite suppression. Will increase from Mounjaro 10mg to Mounjaro 12.5mg. Reinforced lifestyle changes with diet and exercise at today's visit. Follow up in 4-6 weeks for further weight management. Patient has been found to be obese with a BMI of (38). Patient has class (2) obesity. We are a board certified obesity and weight management practice Patient has trialed behavioral modification, dietary restrictions and exercise for a minimum of 3 months Patient was reassured and welcomed to the practice. We discussed that we stress a hollistic medical approach with emphasis on lifestyle modification. Patient was informed that a healthy lifestyle with exercise and good eating habits can help reduce his risk of medical complications. He is explained that obesity increases his risk of diabetes, cardiovascular disease, or organ damage. We spent a lot of time discussing the relationship between food, exercise, sleep, mental health and obesity. Patient was counseled on the importance EATING local, organic food when possible. Patient was educated on clean 15 and dirty dozen. I provided information about reading books called The Food Rules by Shiv Garcia and Eat Fat Get Lean by Dr Kapil Del Rosario. Self education is important in the journey for weight management. Patient was offered diagnostic testing. We want to measure visceral adiposity, advanced body composition, adverse lipids, fatty acid balance, risk for heart disease and atherosclerosis, markers of inflammation and genetic susceptibility. Patient was counseled on weight management and was advised to lose weight using A. Meal Replacement Products Patient was educated on the replacement products called optifast. This is a good way of taking fixed amount of calories. It has been shown in studies to be ineffective weight management tool. This however has to be coupled with lifestyle intervention as well as laboratory data and EKG monitoring. It is impossible to know how a person will tolerate complete meal replacement. The side effects of meal replacement and weight loss could include syncopal attacks, dizziness, gallstones, potential cholecystectomy, possible heart attack and even . The benefits of meal replacement would be potential weight loss but no guarantees can be made. Meal replacement products are not covered by insurance. Once the patient has bought these products we cannot return them B. Lifestyle management which includes several strategies as below 1. Eat a low carbohydrate good fat good protein diet. Eliminate refined carbohydrates from the diet. Continue blood sugar and sugared beverages. Eat local organic when possible. Cook your own meals. Read food labels. None about healthy snacks. Portion control and food with low glycemic index 2. Exercise regularly. Try to get at least 6000 steps a day. Use a predominant to track activity level. Consider using apps like ActionRun, Tigglypal, lose it, stick as needed for self-monitoring and weight management. Consider group exercises. Consider hiring a green jobs trainer. Regular exercise is hahn to sustainable health and prevents as a buffer against weight regain 3. Sleep is most important for healing. Tried to sleep at least 8 hours a night. A good quality sleep needs a sleep ritual with ideal room temperature of around 68. It might help to take a shower and have no electronics in the room and sleep in a very dark room without artificial light. Start her sleep routine and get up early in the morning and go to bed on time 4. Make a social connection. Surround yourself with positive people with positive energy. Connect with friends and family. 5. Get into the habit of meditating and mindfulness while doing everything. 6. Go outside and connect with nature. C. Prescription medications Patient was educated on the use of prescription medications for medical weight loss. This is a growing list and includes phentermine, Topamax,Qsymia, contrave, belviq and saxenda. All prescription medications could have side effects including but not limited to kidney stones, seizure disorder cardiac arrhythmias heart attack pancreatitis etc. etc.. Patient was encouraged to read the prescription insert and have coaching with their pharmacist and make an informed decision about taking medication and know that these medications are being prescribed with good intentions and we do not know how a patient would react to her medication. Sudden medications are FDA approved for weight loss and there is also off label use depending on patient's inability to afford medications in an attempt to lose weight D. Behavioral counseling was done to establish a relationship between food and an mood. Patient was provided information about local counseling and psychiatry and Dr Livingston at [facility]. We would like to cover regular topics and build on low glycemic eating exercise mindful eating, using yoga and meditation along with deep breathing and connecting with friends and family. E. MASS PAT reviewed, Patient's current medications were reviewed and opinion was given on medication that can cause weight gain and can be substituted F. Patient was assessed for risk with obesity including and not limiting to atherosclerosis heart disease stroke kidney disease, restrictive lung disease, irritable bowel syndrome and overall mortality. Risk of developing prediabetes diabetes and metabolic syndrome was discussed G. Therapeutic plan: We have decided to make therapeutic plan which would include choosing wisely on calories restricting portion getting active, tracking weight, getting good quality sleep and working on time management H. Patient will follow up in (4) weeks for weight management Total time spent today was 30 minutes of which greater than 50% was spent on coordinating and counseling Of note, some information is being carried forward from prior records for informational purposes only and is being cited so that efficiency, safety and quality of the patient's care is not compromised This note was prepared using voice recognition software and direct typing Please excuse inadvertent digital project manager or typing errors, or uncorrected word substitutions Although every attempt has been made by the provider to proofread this document, occasional misspellings and typographical errors may still be present Due to the previous pandemic, and the use of personal protective equipment (PPE) This may decrease voice recognition accuracy Inadvertent digital project manager errors may occur 09/23/2023 Pure hypercholesterol emia, unspecified (ICD-10 - E78.00) Acute Concerns/Problem List: 09/23/2023 Here to establish care for PCP services doing well on GLP/GIP Patient feels overall better, clothes are fitting better. Patient tolerating Mounjaro 10mg subq weekly well, no side effects reported and noted appetite suppression. Will increase from Mounjaro 10mg to Mounjaro 12.5mg. Reinforced lifestyle changes with diet and exercise at today's visit. Follow up in 4-6 weeks for further weight management. Patient has been found to be obese with a BMI of (38). Patient has class (2) obesity. We are a board certified obesity and weight management practice Patient has trialed behavioral modification, dietary restrictions and exercise for a minimum of 3 months Patient was reassured and welcomed to the practice. We discussed that we stress a hollistic medical approach with emphasis on lifestyle modification. Patient was informed that a healthy lifestyle with exercise and good eating habits can help reduce his risk of medical complications. He is explained that obesity increases his risk of diabetes, cardiovascular disease, or organ damage. We spent a lot of time discussing the relationship between food, exercise, sleep, mental health and obesity. Patient was counseled on the importance EATING local, organic food when possible. Patient was educated on clean 15 and dirty dozen. I provided information about reading books called The Food Rules by Shiv Garcia and Eat Fat Get Lean by Dr Kapil Del Rosario. Self education is important in the journey for weight management. Patient was offered diagnostic testing. We want to measure visceral adiposity, advanced body composition, adverse lipids, fatty acid balance, risk for heart disease and atherosclerosis, markers of inflammation and genetic susceptibility. Patient was counseled on weight management and was advised to lose weight using A. Meal Replacement Products Patient was educated on the replacement products called optifast. This is a good way of taking fixed amount of calories. It has been shown in studies to be ineffective weight management tool. This however has to be coupled with lifestyle intervention as well as laboratory data and EKG monitoring. It is impossible to know how a person will tolerate complete meal replacement. The side effects of meal replacement and weight loss could include syncopal attacks, dizziness, gallstones, potential cholecystectomy, possible heart attack and even . The benefits of meal replacement would be potential weight loss but no guarantees can be made. Meal replacement products are not covered by insurance. Once the patient has bought these products we cannot return them B. Lifestyle management which includes several strategies as below 1. Eat a low carbohydrate good fat good protein diet. Eliminate refined carbohydrates from the diet. Continue blood sugar and sugared beverages. Eat local organic when possible. Cook your own meals. Read food labels. None about healthy snacks. Portion control and food with low glycemic index 2. Exercise regularly. Try to get at least 6000 steps a day. Use a predominant to track activity level. Consider using apps like 7 mionute excercise, myfitnesspal, lose it, stick as needed for self-monitoring and weight management. Consider group exercises. Consider hiring a green jobs trainer. Regular exercise is hahn to sustainable health and prevents as a buffer against weight regain 3. Sleep is most important for healing. Tried to sleep at least 8 hours a night. A good quality sleep needs a sleep ritual with ideal room temperature of around 68. It might help to take a shower and have no electronics in the room and sleep in a very dark room without artificial light. Start her sleep routine and get up early in the morning and go to bed on time 4. Make a social connection. Surround yourself with positive people with positive energy. Connect with friends and family. 5. Get into the habit of meditating and mindfulness while doing everything. 6. Go outside and connect with nature. C. Prescription medications Patient was educated on the use of prescription medications for medical weight loss. This is a growing list and includes phentermine, Topamax,Qsymia, contrave, belviq and saxenda. All prescription medications could have side effects including but not limited to kidney stones, seizure disorder cardiac arrhythmias heart attack pancreatitis etc. etc.. Patient was encouraged to read the prescription insert and have coaching with their pharmacist and make an informed decision about taking medication and know that these medications are being prescribed with good intentions and we do not know how a patient would react to her medication. Sudden medications are FDA approved for weight loss and there is also off label use depending on patient's inability to afford medications in an attempt to lose weight D. Behavioral counseling was done to establish a relationship between food and an mood. Patient was provided information about local counseling and psychiatry and Dr Livingston at [facility]. We would like to cover regular topics and build on low glycemic eating exercise mindful eating, using yoga and meditation along with deep breathing and connecting with friends and family. E. MASS PAT reviewed, Patient's current medications were reviewed and opinion was given on medication that can cause weight gain and can be substituted F. Patient was assessed for risk with obesity including and not limiting to atherosclerosis heart disease stroke kidney disease, restrictive lung disease, irritable bowel syndrome and overall mortality. Risk of developing prediabetes diabetes and metabolic syndrome was discussed G. Therapeutic plan: We have decided to make therapeutic plan which would include choosing wisely on calories restricting portion getting active, tracking weight, getting good quality sleep and working on time management H. Patient will follow up in (4) weeks for weight management Total time spent today was 30 minutes of which greater than 50% was spent on coordinating and counseling Of note, some information is being carried forward from prior records for informational purposes only and is being cited so that efficiency, safety and quality of the patient's care is not compromised This note was prepared using voice recognition software and direct typing Please excuse inadvertent digital project manager or typing errors, or uncorrected word substitutions Although every attempt has been made by the provider to proofread this document, occasional misspellings and typographical errors may still be present Due to the previous pandemic, and the use of personal protective equipment (PPE) This may decrease voice recognition accuracy Inadvertent digital project manager errors may occur 09/23/2023 Low back pain, unspecified (ICD-10 - M54.50) Acute Concerns/Problem List: 09/23/2023 Here to establish care for PCP services doing well on GLP/GIP Patient feels overall better, clothes are fitting better. Patient tolerating Mounjaro 10mg subq weekly well, no side effects reported and noted appetite suppression. Will increase from Mounjaro 10mg to Mounjaro 12.5mg. Reinforced lifestyle changes with diet and exercise at today's visit. Follow up in 4-6 weeks for further weight management. Patient has been found to be obese with a BMI of (38). Patient has class (2) obesity. We are a board certified obesity and weight management practice Patient has trialed behavioral modification, dietary restrictions and exercise for a minimum of 3 months Patient was reassured and welcomed to the practice. We discussed that we stress a hollistic medical approach with emphasis on lifestyle modification. Patient was informed that a healthy lifestyle with exercise and good eating habits can help reduce his risk of medical complications. He is explained that obesity increases his risk of diabetes, cardiovascular disease, or organ damage. We spent a lot of time discussing the relationship between food, exercise, sleep, mental health and obesity. Patient was counseled on the importance EATING local, organic food when possible. Patient was educated on clean 15 and dirty dozen. I provided information about reading books called The Food Rules by Shiv Garcia and Eat Fat Get Lean by Dr Kapil Del Rosario. Self education is important in the journey for weight management. Patient was offered diagnostic testing. We want to measure visceral adiposity, advanced body composition, adverse lipids, fatty acid balance, risk for heart disease and atherosclerosis, markers of inflammation and genetic susceptibility. Patient was counseled on weight management and was advised to lose weight using A. Meal Replacement Products Patient was educated on the replacement products called optifast. This is a good way of taking fixed amount of calories. It has been shown in studies to be ineffective weight management tool. This however has to be coupled with lifestyle intervention as well as laboratory data and EKG monitoring. It is impossible to know how a person will tolerate complete meal replacement. The side effects of meal replacement and weight loss could include syncopal attacks, dizziness, gallstones, potential cholecystectomy, possible heart attack and even . The benefits of meal replacement would be potential weight loss but no guarantees can be made. Meal replacement products are not covered by insurance. Once the patient has bought these products we cannot return them B. Lifestyle management which includes several strategies as below 1. Eat a low carbohydrate good fat good protein diet. Eliminate refined carbohydrates from the diet. Continue blood sugar and sugared beverages. Eat local organic when possible. Cook your own meals. Read food labels. None about healthy snacks. Portion control and food with low glycemic index 2. Exercise regularly. Try to get at least 6000 steps a day. Use a predominant to track activity level. Consider using apps like ActionRun, myfitHOMEOSTASIS LABSpal, lose it, stick as needed for self-monitoring and weight management. Consider group exercises. Consider hiring a green jobs trainer. Regular exercise is hahn to sustainable health and prevents as a buffer against weight regain 3. Sleep is most important for healing. Tried to sleep at least 8 hours a night. A good quality sleep needs a sleep ritual with ideal room temperature of around 68. It might help to take a shower and have no electronics in the room and sleep in a very dark room without artificial light. Start her sleep routine and get up early in the morning and go to bed on time 4. Make a social connection. Surround yourself with positive people with positive energy. Connect with friends and family. 5. Get into the habit of meditating and mindfulness while doing everything. 6. Go outside and connect with nature. C. Prescription medications Patient was educated on the use of prescription medications for medical weight loss. This is a growing list and includes phentermine, Topamax,Qsymia, contrave, belviq and saxenda. All prescription medications could have side effects including but not limited to kidney stones, seizure disorder cardiac arrhythmias heart attack pancreatitis etc. etc.. Patient was encouraged to read the prescription insert and have coaching with their pharmacist and make an informed decision about taking medication and know that these medications are being prescribed with good intentions and we do not know how a patient would react to her medication. Sudden medications are FDA approved for weight loss and there is also off label use depending on patient's inability to afford medications in an attempt to lose weight D. Behavioral counseling was done to establish a relationship between food and an mood. Patient was provided information about local counseling and psychiatry and Dr Livingston at [facility]. We would like to cover regular topics and build on low glycemic eating exercise mindful eating, using yoga and meditation along with deep breathing and connecting with friends and family. E. MASS PAT reviewed, Patient's current medications were reviewed and opinion was given on medication that can cause weight gain and can be substituted F. Patient was assessed for risk with obesity including and not limiting to atherosclerosis heart disease stroke kidney disease, restrictive lung disease, irritable bowel syndrome and overall mortality. Risk of developing prediabetes diabetes and metabolic syndrome was discussed G. Therapeutic plan: We have decided to make therapeutic plan which would include choosing wisely on calories restricting portion getting active, tracking weight, getting good quality sleep and working on time management H. Patient will follow up in (4) weeks for weight management Total time spent today was 30 minutes of which greater than 50% was spent on coordinating and counseling Of note, some information is being carried forward from prior records for informational purposes only and is being cited so that efficiency, safety and quality of the patient's care is not compromised This note was prepared using voice recognition software and direct typing Please excuse inadvertent digital project manager or typing errors, or uncorrected word substitutions Although every attempt has been made by the provider to proofread this document, occasional misspellings and typographical errors may still be present Due to the previous pandemic, and the use of personal protective equipment (PPE) This may decrease voice recognition accuracy Inadvertent digital project manager errors may occur 09/23/2023 Other chronic pain (ICD-10 - G89.29) Acute Concerns/Problem List: 09/23/2023 Here to establish care for PCP services doing well on GLP/GIP Patient feels overall better, clothes are fitting better. Patient tolerating Mounjaro 10mg subq weekly well, no side effects reported and noted appetite suppression. Will increase from Mounjaro 10mg to Mounjaro 12.5mg. Reinforced lifestyle changes with diet and exercise at today's visit. Follow up in 4-6 weeks for further weight management. Patient has been found to be obese with a BMI of (38). Patient has class (2) obesity. We are a board certified obesity and weight management practice Patient has trialed behavioral modification, dietary restrictions and exercise for a minimum of 3 months Patient was reassured and welcomed to the practice. We discussed that we stress a hollistic medical approach with emphasis on lifestyle modification. Patient was informed that a healthy lifestyle with exercise and good eating habits can help reduce his risk of medical complications. He is explained that obesity increases his risk of diabetes, cardiovascular disease, or organ damage. We spent a lot of time discussing the relationship between food, exercise, sleep, mental health and obesity. Patient was counseled on the importance EATING local, organic food when possible. Patient was educated on clean 15 and dirty dozen. I provided information about reading books called The Food Rules by Shiv Garcia and Eat Fat Get Lean by Dr Kapil Del Rosario. Self education is important in the journey for weight management. Patient was offered diagnostic testing. We want to measure visceral adiposity, advanced body composition, adverse lipids, fatty acid balance, risk for heart disease and atherosclerosis, markers of inflammation and genetic susceptibility. Patient was counseled on weight management and was advised to lose weight using A. Meal Replacement Products Patient was educated on the replacement products called optifast. This is a good way of taking fixed amount of calories. It has been shown in studies to be ineffective weight management tool. This however has to be coupled with lifestyle intervention as well as laboratory data and EKG monitoring. It is impossible to know how a person will tolerate complete meal replacement. The side effects of meal replacement and weight loss could include syncopal attacks, dizziness, gallstones, potential cholecystectomy, possible heart attack and even . The benefits of meal replacement would be potential weight loss but no guarantees can be made. Meal replacement products are not covered by insurance. Once the patient has bought these products we cannot return them B. Lifestyle management which includes several strategies as below 1. Eat a low carbohydrate good fat good protein diet. Eliminate refined carbohydrates from the diet. Continue blood sugar and sugared beverages. Eat local organic when possible. Cook your own meals. Read food labels. None about healthy snacks. Portion control and food with low glycemic index 2. Exercise regularly. Try to get at least 6000 steps a day. Use a predominant to track activity level. Consider using apps like ActionRun, Tigglypal, lose it, stick as needed for self-monitoring and weight management. Consider group exercises. Consider hiring a green jobs trainer. Regular exercise is hahn to sustainable health and prevents as a buffer against weight regain 3. Sleep is most important for healing. Tried to sleep at least 8 hours a night. A good quality sleep needs a sleep ritual with ideal room temperature of around 68. It might help to take a shower and have no electronics in the room and sleep in a very dark room without artificial light. Start her sleep routine and get up early in the morning and go to bed on time 4. Make a social connection. Surround yourself with positive people with positive energy. Connect with friends and family. 5. Get into the habit of meditating and mindfulness while doing everything. 6. Go outside and connect with nature. C. Prescription medications Patient was educated on the use of prescription medications for medical weight loss. This is a growing list and includes phentermine, Topamax,Qsymia, contrave, belviq and saxenda. All prescription medications could have side effects including but not limited to kidney stones, seizure disorder cardiac arrhythmias heart attack pancreatitis etc. etc.. Patient was encouraged to read the prescription insert and have coaching with their pharmacist and make an informed decision about taking medication and know that these medications are being prescribed with good intentions and we do not know how a patient would react to her medication. Sudden medications are FDA approved for weight loss and there is also off label use depending on patient's inability to afford medications in an attempt to lose weight D. Behavioral counseling was done to establish a relationship between food and an mood. Patient was provided information about local counseling and psychiatry and Dr Livingston at [facility]. We would like to cover regular topics and build on low glycemic eating exercise mindful eating, using yoga and meditation along with deep breathing and connecting with friends and family. E. MASS PAT reviewed, Patient's current medications were reviewed and opinion was given on medication that can cause weight gain and can be substituted F. Patient was assessed for risk with obesity including and not limiting to atherosclerosis heart disease stroke kidney disease, restrictive lung disease, irritable bowel syndrome and overall mortality. Risk of developing prediabetes diabetes and metabolic syndrome was discussed G. Therapeutic plan: We have decided to make therapeutic plan which would include choosing wisely on calories restricting portion getting active, tracking weight, getting good quality sleep and working on time management H. Patient will follow up in (4) weeks for weight management Total time spent today was 30 minutes of which greater than 50% was spent on coordinating and counseling Of note, some information is being carried forward from prior records for informational purposes only and is being cited so that efficiency, safety and quality of the patient's care is not compromised This note was prepared using voice recognition software and direct typing Please excuse inadvertent digital project manager or typing errors, or uncorrected word substitutions Although every attempt has been made by the provider to proofread this document, occasional misspellings and typographical errors may still be present Due to the previous pandemic, and the use of personal protective equipment (PPE) This may decrease voice recognition accuracy Inadvertent digital project manager errors may occur 09/23/2023 Prostate cancer (ICD-10 - C61) Acute Concerns/Problem List: 09/23/2023 Here to establish care for PCP services doing well on GLP/GIP Patient feels overall better, clothes are fitting better. Patient tolerating Mounjaro 10mg subq weekly well, no side effects reported and noted appetite suppression. Will increase from Mounjaro 10mg to Mounjaro 12.5mg. Reinforced lifestyle changes with diet and exercise at today's visit. Follow up in 4-6 weeks for further weight management. Patient has been found to be obese with a BMI of (38). Patient has class (2) obesity. We are a board certified obesity and weight management practice Patient has trialed behavioral modification, dietary restrictions and exercise for a minimum of 3 months Patient was reassured and welcomed to the practice. We discussed that we stress a hollistic medical approach with emphasis on lifestyle modification. Patient was informed that a healthy lifestyle with exercise and good eating habits can help reduce his risk of medical complications. He is explained that obesity increases his risk of diabetes, cardiovascular disease, or organ damage. We spent a lot of time discussing the relationship between food, exercise, sleep, mental health and obesity. Patient was counseled on the importance EATING local, organic food when possible. Patient was educated on clean 15 and dirty dozen. I provided information about reading books called The Food Rules by Shiv Garcia and Eat Fat Get Lean by Dr Kapil Del Rosario. Self education is important in the journey for weight management. Patient was offered diagnostic testing. We want to measure visceral adiposity, advanced body composition, adverse lipids, fatty acid balance, risk for heart disease and atherosclerosis, markers of inflammation and genetic susceptibility. Patient was counseled on weight management and was advised to lose weight using A. Meal Replacement Products Patient was educated on the replacement products called optifast. This is a good way of taking fixed amount of calories. It has been shown in studies to be ineffective weight management tool. This however has to be coupled with lifestyle intervention as well as laboratory data and EKG monitoring. It is impossible to know how a person will tolerate complete meal replacement. The side effects of meal replacement and weight loss could include syncopal attacks, dizziness, gallstones, potential cholecystectomy, possible heart attack and even . The benefits of meal replacement would be potential weight loss but no guarantees can be made. Meal replacement products are not covered by insurance. Once the patient has bought these products we cannot return them B. Lifestyle management which includes several strategies as below 1. Eat a low carbohydrate good fat good protein diet. Eliminate refined carbohydrates from the diet. Continue blood sugar and sugared beverages. Eat local organic when possible. Cook your own meals. Read food labels. None about healthy snacks. Portion control and food with low glycemic index 2. Exercise regularly. Try to get at least 6000 steps a day. Use a predominant to track activity level. Consider using apps like ActionRun, myfitnesspal, lose it, stick as needed for self-monitoring and weight management. Consider group exercises. Consider hiring a green jobs trainer. Regular exercise is hahn to sustainable health and prevents as a buffer against weight regain 3. Sleep is most important for healing. Tried to sleep at least 8 hours a night. A good quality sleep needs a sleep ritual with ideal room temperature of around 68. It might help to take a shower and have no electronics in the room and sleep in a very dark room without artificial light. Start her sleep routine and get up early in the morning and go to bed on time 4. Make a social connection. Surround yourself with positive people with positive energy. Connect with friends and family. 5. Get into the habit of meditating and mindfulness while doing everything. 6. Go outside and connect with nature. C. Prescription medications Patient was educated on the use of prescription medications for medical weight loss. This is a growing list and includes phentermine, Topamax,Qsymia, contrave, belviq and saxenda. All prescription medications could have side effects including but not limited to kidney stones, seizure disorder cardiac arrhythmias heart attack pancreatitis etc. etc.. Patient was encouraged to read the prescription insert and have coaching with their pharmacist and make an informed decision about taking medication and know that these medications are being prescribed with good intentions and we do not know how a patient would react to her medication. Sudden medications are FDA approved for weight loss and there is also off label use depending on patient's inability to afford medications in an attempt to lose weight D. Behavioral counseling was done to establish a relationship between food and an mood. Patient was provided information about local counseling and psychiatry and Dr Livingston at [facility]. We would like to cover regular topics and build on low glycemic eating exercise mindful eating, using yoga and meditation along with deep breathing and connecting with friends and family. E. MASS PAT reviewed, Patient's current medications were reviewed and opinion was given on medication that can cause weight gain and can be substituted F. Patient was assessed for risk with obesity including and not limiting to atherosclerosis heart disease stroke kidney disease, restrictive lung disease, irritable bowel syndrome and overall mortality. Risk of developing prediabetes diabetes and metabolic syndrome was discussed G. Therapeutic plan: We have decided to make therapeutic plan which would include choosing wisely on calories restricting portion getting active, tracking weight, getting good quality sleep and working on time management H. Patient will follow up in (4) weeks for weight management Total time spent today was 30 minutes of which greater than 50% was spent on coordinating and counseling Of note, some information is being carried forward from prior records for informational purposes only and is being cited so that efficiency, safety and quality of the patient's care is not compromised This note was prepared using voice recognition software and direct typing Please excuse inadvertent digital project manager or typing errors, or uncorrected word substitutions Although every attempt has been made by the provider to proofread this document, occasional misspellings and typographical errors may still be present Due to the previous pandemic, and the use of personal protective equipment (PPE) This may decrease voice recognition accuracy Inadvertent digital project manager errors may occur PLAN OF TREATMENT No Information Progress Notes * Levar LAUGHLINeDOB: 6 (58 yo M)Acc No.[id number]:09/23/2023 Progress Notes Patient:??Kvng LAUGHLIN Provider:??ELLE LUNSFORD NP :1965?Age:58 Y?Sex:Ma le Date:09/23/2023 Address:[address] [place], [place] [id number] Subjective: * Chief Complaints: * ? * HPI: ?Constitutional:? Patient is here today for New patient visit and to establish care ?Patient seen and examined. ? Full past medical history, social history, family history, ?allergies and current medications were reviewed and updated. ?Body composition analysis reviewed today, as expected increased BMI, ?visceral adiposity, fat mass index, waist cirumference ?Good skeletal mass composition, Good water composition ?Caloric energy expenditure discussed ?Acute Concerns/Problem List: ?09/23/2023 ?Current weight management patient of our practice ?Here to establish care for PCP services ?His pharmacy was out of Mounjaro 10mg, and was offered by pharmacy to take Mounjaro 7.5mg ? until the 10mg dose was back in stock. ?He has been taking Mounjaro 7.5mg because of this. ?He reports he has been feeling overall better, his clothes are fitting better. ?Mentally, he feels like he was doing better Mounjaro 7.5mg with more appetite suppression. ?Feels his appetite went up a bit on the 10mg. ?Denies abd pain, nausea, constipation, diarrhea, or vomiting. ?Overall tolerating Esequielro well. ?being treated for prostate Ca, urologist in [facility], Dr. Robin ?on apalutamide ?Injection day - Thursday ?09/23/2023, Weight , BMI ?11/04/2022: Weight 250 ?09/18/2022: Weight 250, BMI 38 (-2lb) ?08/14/2022: Weight 252lbs, BMI 38 (-2lbs) ?07/03/2022: Weight 254lbs, BMIn38, (-7lbs) ?05/21/2022: Weight 261 lbs, BMI 39.8 ?04/22/2022: Weight 261 lbs, BMI: 39.8 ?Patient referred to us from who is a weight mgt pt. ?Patient is currently unemployed ?Highest weight: 209 lbs ?Lowest weight: 180-200 lbs ?Goal weight: 200-220 lbs ?Has SHELIA, uses CPAP ?Metabolic workup: ?Thyroid? WNL 03/06/22 ?Diabetes? WNL 03/06/22 ?Has not had an echocardiogram recently. ?Diet: tried portion controlling, not working ?Exercise: not counting steps ?Non-smoker. ?ETOH use: none ?Health Maintenance: ?COVID MRNA ?Flu 2022 ?TDAP ?Cscope ?Shingrix. * ROS:?All Other Systems:?Review of Systems (ROS)??All others negative except those mentioned in HPI.? * Medical History:?? * Medications:??Taking Albuter ol Sulfate HFA 108 (90 Base) MCG/ACT Aerosol Solution Inhalation , Taking Naloxone HCl 4 MG/0.1ML Liquid INSTILL 4 MG SPRAY INTO BOTH NOSTRILS ONCE MAY REPEAT EVERY 2 TO 3 MINUTES UNTIL PATIENT RESPONDS Nasal , Taking oxyCODONE HCl 5 MG Tablet TAKE 1 TABLET BY MOUTH EVERY 6 HOURS NEEDED FOR PAIN Oral , Taking OxyCONTIN 10 MG Tablet ER 12 Hour Abuse-Deterrent Oral , Taking Tamsulosin HCl 0.4 MG Capsule TAKE 2 CAPSULES BY MOUTH AT BEDTIME Oral , Taking Myrbetriq 50 MG Tablet Extended Release 24 Hour Oral , Taking hydroCHLOROthiazide 12.5 MG Capsule Oral , Taking Montelukast Sodium 10 MG Tablet Oral , Taking Simvastatin 20 MG Tablet Oral , Taking Flovent HFA 220 MCG/ACT Aerosol Inhalation , Taking Xtandi 40 MG Tablet Oral , Taking Mounjaro 2.5 MG/0.5ML Solution Pen- injector 2.5mg Subcutaneous weekly , Notes to Pharmacist: ЕКАТЕРИНА approved 04/23/22-04/23/23, Taking Mounjaro 5 MG/0.5ML Solution Pen-injector INJECT 5MG UNDER THE SKIN EVERY WEEK Objective: * Examination: ?General Examination: ?GENERAL APPEARANCE:??in no acute distress, well developed, well nourished.??HEAD:??normocephalic, atraumatic.??EYES:??pupils equal, round, reactive to light and accommodation.??EARS:??normal.??ORAL CAVITY:??mucosa moist.??THROAT:??clear.??NECK/THYROID:??neck supple, full range of motion, no cervical lymphadenopathy.??SKIN:??no suspicious lesions, warm and dry.??HEART:??no murmurs, regular rate and rhythm, S1, S2 normal.??LUNGS:??clear to auscultation bilaterally.??ABDOMEN:??normal, bowel sounds present, soft, nontender, nondistended.??EXTREMITIES:??no clubbing, cyanosis, or edema.??NEUROLOGIC:??nonfocal, motor strength normal upper and lower extremities, sensory exam intact.? 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 Acute Concerns/Problem List: 09/23/2023 Here to establish care for PCP services doing well on GLP/GIP Patient feels overall better, clothes are fitting better. Patient tolerating Mounjaro 10mg subq weekly well, no side effects reported and noted appetite suppression. Will increase from Mounjaro 10mg to Mounjaro 12.5mg. Reinforced lifestyle changes with diet and exercise at today's visit. Follow up in 4-6 weeks for further weight management. Patient has been found to be obese with a BMI of (38). Patient has class (2) obesity. We are a board certified obesity and weight management practice Patient has trialed behavioral modification, dietary restrictions and exercise for a minimum of 3 months Patient was reassured and welcomed to the practice. We discussed that we stress a hollistic medical approach with emphasis on lifestyle modification. Patient was informed that a healthy lifestyle with exercise and good eating habits can help reduce his risk of medical complications. He is explained that obesity increases his risk of diabetes, cardiovascular disease, or organ damage. We spent a lot of time discussing the relationship between food, exercise, sleep, mental health and obesity. Patient was counseled on the importance EATING local, organic food when possible. Patient was educated on clean 15 and dirty dozen. I provided information about reading books called The Food Rules by Shiv Garcia and Eat Fat Get Lean by Dr Kapil Del Rosario. Self education is important in the journey for weight management. Patient was offered diagnostic testing. We want to measure visceral adiposity, advanced body composition, adverse lipids, fatty acid balance, risk for heart disease and atherosclerosis, markers of inflammation and genetic susceptibility. Patient was counseled on weight management and was advised to lose weight using A. Meal Replacement Products Patient was educated on the replacement products called optifast. This is a good way of taking fixed amount of calories. It has been shown in studies to be ineffective weight management tool. This however has to be coupled with lifestyle intervention as well as laboratory data and EKG monitoring. It is impossible to know how a person will tolerate complete meal replacement. The side effects of meal replacement and weight loss could include syncopal attacks, dizziness, gallstones, potential cholecystectomy, possible heart attack and even . The benefits of meal replacement would be potential weight loss but no guarantees can be made. Meal replacement products are not covered by insurance. Once the patient has bought these products we cannot return them B. Lifestyle management which includes several strategies as below 1. Eat a low carbohydrate good fat good protein diet. Eliminate refined carbohydrates from the diet. Continue blood sugar and sugared beverages. Eat local organic when possible. Cook your own meals. Read food labels. None about healthy snacks. Portion control and food with low glycemic index 2. Exercise regularly. Try to get at least 6000 steps a day. Use a predominant to track activity level. Consider using apps like ActionRun, myfitHOMEOSTASIS LABSpal, lose it, stick as needed for self-monitoring and weight management. Consider group exercises. Consider hiring a green jobs trainer. Regular exercise is hahn to sustainable health and prevents as a buffer against weight regain 3. Sleep is most important for healing. Tried to sleep at least 8 hours a night. A good quality sleep needs a sleep ritual with ideal room temperature of around 68. It might help to take a shower and have no electronics in the room and sleep in a very dark room without artificial light. Start her sleep routine and get up early in the morning and go to bed on time 4. Make a social connection. Surround yourself with positive people with positive energy. Connect with friends and family. 5. Get into the habit of meditating and mindfulness while doing everything. 6. Go outside and connect with nature. C. Prescription medications Patient was educated on the use of prescription medications for medical weight loss. This is a growing list and includes phentermine, Topamax,Qsymia, contrave, belviq and saxenda. All prescription medications could have side effects including but not limited to kidney stones, seizure disorder cardiac arrhythmias heart attack pancreatitis etc. etc.. Patient was encouraged to read the prescription insert and have coaching with their pharmacist and make an informed decision about taking medication and know that these medications are being prescribed with good intentions and we do not know how a patient would react to her medication. Sudden medications are FDA approved for weight loss and there is also off label use depending on patient's inability to afford medications in an attempt to lose weight D. Behavioral counseling was done to establish a relationship between food and an mood. Patient was provided information about local counseling and psychiatry and Dr Livingston at [facility]. We would like to cover regular topics and build on low glycemic eating exercise mindful eating, using yoga and meditation along with deep breathing and connecting with friends and family. E. MASS PAT reviewed, Patient's current medications were reviewed and opinion was given on medication that can cause weight gain and can be substituted F. Patient was assessed for risk with obesity including and not limiting to atherosclerosis heart disease stroke kidney disease, restrictive lung disease, irritable bowel syndrome and overall mortality. Risk of developing prediabetes diabetes and metabolic syndrome was discussed G. Therapeutic plan: We have decided to make therapeutic plan which would include choosing wisely on calories restricting portion getting active, tracking weight, getting good quality sleep and working on time management H. Patient will follow up in (4) weeks for weight management Total time spent today was 30 minutes of which greater than 50% was spent on coordinating and counseling Of note, some information is being carried forward from prior records for informational purposes only and is being cited so that efficiency, safety and quality of the patient's care is not compromised This note was prepared using voice recognition software and direct typing Please excuse inadvertent digital project manager or typing errors, or uncorrected word substitutions Although every attempt has been made by the provider to proofread this document, occasional misspellings and typographical errors may still be present Due to the previous pandemic, and the use of personal protective equipment (PPE) This may decrease voice recognition accuracy Inadvertent digital project manager errors may occur. Plan: * Treatment: * Images: Billing Information: * Visit Code:?? * Procedure Codes:?? * Sign off status: Pending * Provider:??ELLE LUNSFORD NP Date:??09/06 History and Physical Notes * HPI (History of Present Illness) Category Sub-Category Detail Notes Category Not es Constitutional Patient is here today for New patient visit and to establish care Patient seen and examined. Full past medical history, social history, family history, allergies and current medications were reviewed and updated. Body composition analysis reviewed today, as expected increased BMI, visceral adiposity, fat mass index, waist cirumference Good skeletal mass composition, Good water composition Caloric energy expenditure discussed Acute Concerns/Problem List: 09/23/2023 Current weight management patient of our practice Here to establish care for PCP services His pharmacy was out of Mounjaro 10mg, and was offered by pharmacy to take Mounjaro 7.5mg until the 10mg dose was back in stock. He has been taking Mounjaro 7.5mg because of this. He reports he has been feeling overall better, his clothes are fitting better. Mentally, he feels like he was doing better Mounjaro 7.5mg with more appetite suppression. Feels his appetite went up a bit on the 10mg. Denies abd pain, nausea, constipation, diarrhea, or vomiting. Overall tolerating Mounjaro well. being treated for prostate Ca, urologist in [facility], Dr. Robin on apalutamide Injection - Thursday09/23/2023, Weight , BMI 11/04/2022: Weight 250 09/18/2022: Weight 250, BMI 38 (-2lb) 08/14/2022: Weight 252lbs, BMI 38 (-2lbs) 07/03/2022: Weight 254lbs, BMIn38, (-7lbs) 05/21/2022: Weight 261 lbs, BMI 39.8 04/22/2022: Weight 261 lbs, BMI: 39.8 Patient referred to us from who is a weight mgt pt. Patient is currently unemployed Highest weight: 209 lbs Lowest weight: 180-200 lbs Goal weight: 200-220 lbs Has SHELIA, uses CPAP Metabolic workup: Thyroid? WNL 03/06/22 Diabetes? WNL 03/06/22 Has not had an echocardiogram recently. Diet: tried portion controlling, not working Exercise: not counting steps Non-smoker. ETOH use: none Health Maintenance: COVID MRNA Flu 2022 TDAP Cscope Shingrix Examination Category Sub-Category Detail Notes Category Not es General Examination GENERAL APPEARANCE: in no ac galena distress, well developed, well nourished HEAD: normocephalic, atrau matic EYES: pupils equal, round, reactive to light and accommodation EARS: normal THROAT: clear NECK/THYROID: neck supple, full ra nge of motion, no cervical lymphadenopathy HEART: no murmurs, regular rate and rhythm, S1, S2 normal LUNGS: clear to auscultatio n bilaterally ABDOMEN: normal, bowel sounds present, soft, nontender, nondistended NEUROLOGIC: nonfocal, motor stre ngth normal upper and lower extremities, sensory exam intact SKIN: no suspicious lesion s, warm and dry EXTREMITIES: no clubbing, cyanosi s, or edema ORAL CAVITY: mucosa moist
--- OUTSIDE RECORDS SUMMARY | 2024-06-22 15:10 | XMS_ITS ---
Author Organization [facility] Address [address] [place] [address] Care Team Providers Care Hair Spinner Name Role Phone NITESHShanelle ELLE Unavailable [phone] REASON FOR VISIT balance Encounters Encounter Location Date Provider Diagnosis [facility] [address] [place] [address] 08/19/2023 ELLE LUNSFORD PLAN OF TREATMENT No Information Progress Notes * Levar LAUGHLINeDOB: 6 (58 yo M)Acc No.[id number]:08/19/2023 Patient:??Kvng LAUGHLIN :1965?Age:58 Y?Sex:Paul garsia Address: [place] [address] * true * Date:??
--- OUTSIDE RECORDS SUMMARY | 2024-06-22 15:10 | XMS_ITS | Clinical Summary ---
Author Organization [facility] Address [address] [place] [address] Care Team Providers Care Windows Vmware Administrator Name Role Phone Amee Sarabia MD Primary Care Provider Allergies No known active allergies Medications Flovent HFA 220 MCG/ACT inhaler INL 2 PFS PO BID U VIA SPACER. RM AND THROAT AFTER U 0 Active hydrochlorothia zide (HYDRODIURIL) 25 MG tablet Take 25 mg by mouth. Active montelukast (SINGULAIR) 10 MG tablet Take 10 mg by mouth. Active oxyCODONE (OxyCONTIN) 10 MG ER (extended release) tablet Take 10 mg by mouth twice daily (every 12 hours). Active OxyCONTIN 10 MG ER (extended release) tablet TK 1 T PO Q 12 H PRF PAIN CALENDAR 0 Active albuterol (PROVENTIL) (0.083%) 2.5 mg/3 mL nebulizer solution Take 1 vial by nebulization 4 times daily (every 6 hours) as needed for wheezing. Active Active Problems No known active problems Family History Medical History Relation Name Comments Cancer Neg Hx Relation Name Status Comments Father Mother Alive Social History Tobacco Use Types Packs/Day Years Used Date Smoking Tobacco: Never Smokeless Tobacco: Never Alcohol Use Standard Drinks/Week Comments Not Currently 0 (1 standard drink = 0.6 oz pur e alcohol) Sex and Gender Information Value Date Recorded Sex Assigned at Not on file Legal Sex Male 4:15 PM EDT Gender Identity Not on file Sexual Orientation Not on file Last Filed Vital Signs Vital Sign Reading Time Taken Comments Blood Pressure - - Pulse - - Temperature - - Respiratory Rate 16 01/18/2020 3:48 PM EST Oxygen Saturation - - Inhaled Oxygen Concentration - - Weight 108 kg (238 lb) 01/18/2020 3:48 PM EST Height 172.7 cm (5' 8 ) 01/18/2020 3:48 PM EST Body Mass Index 36.19 01/18/2020 3:48 PM EST Plan of Treatment Health Maintenance Due Date Last Done Comments Hepatitis C Virus Screening 1965 HIV Screening 1978 DTaP/Tdap/Td Vaccines (1 - Tdap) 1984 Hepatitis B Vaccines (1 of 3 - 19+ 3-dose series) 03/1984 Colonoscopy 2010 Pneumococcal Vaccines 50+ (1 of 1 - PCV) 07/08/2015 Zoster (Shingles) Vaccine (1 of 2) 07/08/2015 Influenza Vaccine 10/08/2023 COVID-19 Vaccine ( - 2023- season) 2023 Insurance [facility] - PPO Care Teams Windows Vmware Administrator Relationship Specialty Start Date End Date Amee Sarabia MD [address] [place] [id number] PCP - General Internal Medicine 12/30/19
--- OUTSIDE RECORDS SUMMARY | 2024-06-22 15:10 | XMS_ITS ---
Author Organization [facility] Address [address] [place] [address] Care Team Providers Care Clin Application Specialist Name Role Phone NITESHShanelle ELLE Unavailable [phone] REASON FOR VISIT balance- lm Encounters Encounter Location Date Provider Diagnosis [facility] [address] [place] [address] 09/01/2023 ELLE LUNSFORD PLAN OF TREATMENT No Information Progress Notes * Levar LAUGHLINeDOB: [birth year] (58 yo M)Acc No.[id number]:09/01/2023 Patient:??Kvng LAUGHLIN :1965?Age:58 Y?Sex:Paul garsia Address: [place] [address] * true * Date:??
--- OUTSIDE RECORDS SUMMARY | 2024-06-22 15:10 | XMS_ITS | Patient Health Record ---
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 Name Role Phone ELLE LUNSFORD Unavailable [phone] ALLERGIES No Known Allergies REASON FOR REFERRAL No Information MEDICATIONS Medication SIG (Take, Route, Frequency, Duration) Notes Start Date End Date Status Albuterol Sulfate HFA 108 (90 Base) MCG/ACT Inhalation for 25 Activ e Mounjaro 2.5 MG/0.5ML 2.5mg Subcutaneous weekly for 30 days PA approved 04/23/22- 4 04/22/2022 Active Naloxone HCl 4 MG/0.1ML INSTILL 4 MG SPR AY INTO BOTH NOSTRILS ONCE MAY REPEAT EVERY 2 TO 3 MINUTES UNTIL PATIENT RESPONDS Nasal for 2 Active oxyCODONE HCl 5 MG TAKE 1 TABLET BY MOUTH EVERY 6 HOURS NEEDED FOR PAIN Oral for 28 Active OxyCONTIN 10 MG Oral for 28 Ac tive Montelukast Sodium 10 MG Oral for 30 Active Simvastatin 20 MG Oral for 30 Active Flovent HFA 220 MCG/ACT Inhalation for 30 Active Xtandi 40 MG Oral for 30 Activ e hydroCHLOROthiazide 12.5 MG Oral for 30 Active Mounjaro 5 MG/0.5ML ADMINISTER 5 MG UNDER THE SKIN EVERY WEEK for 28 Active Tamsulosin HCl 0.4 MG TAKE 2 CAPSULES BY MOUTH AT BEDTIME Oral for 30 Active Myrbetriq 50 MG Oral for 30 Ac tive SOCIAL HISTORY Tobacco Use: Social History Observation Description Date Details (start date - stop date) Never Smoker NA - NA Sex Assigned At : Social History Observation Description Sex Assigned At Unknown Tobacco Use/Smoking Question Answer Notes Are you a nonsmoker Alcohol Screen (Audit-C) Question Answer Notes Did you have a drink containing alcohol in the p ast year? No Points 0 Interpretation Negative PROBLEMS Problem Type ICD Code Onset Dates Problem Status W/U Status Risk SNOMED Code Notes Problem Other obesity due to excess calories (E66.09) Active confirmed 435172955 Problem Other chronic pain (G89.29) Active confirmed 97187012 Problem Essential (primary) hypertension (I10) Active confirmed 60757524 Problem Pure hypercholesterole dustin, unspecified (E78.00) Active confirmed 265437252 Problem Prostate cancer (C61) Active confirmed 134298145 Problem Body mass index [BMI] 39.0-39.9, adult (Z68.39) Active confirmed 247521965 Problem BMI 38.0-38.9,adult (Z68.38) Active confirmed 492408900 Encounters Encounter Location Date Provider Diagnosis [place] [id number] 06/29/2023 ELLE BORHOT Other obesity due to excess calories E66.09 ; Essential (primary) hypertension I10 ; Pure hypercholesterolemia, unspecified E78.00 ; Low back pain, unspecified M54.50 ; Other chronic pain G89.29 ; Prostate cancer C61 and BMI 38.0-38.9,adult Z68.38 [place] [address] 06/30/2023 [place] [address] 07/20/2023 [place] [address] 07/24/2023 ELLE BORHOT Other obesity due to excess calories E66.09 ; Essential (primary) hypertension I10 ; Pure hypercholesterolemia, unspecified E78.00 ; Low back pain, unspecified M54.50 ; Other chronic pain G89.29 ; Prostate cancer C61 and BMI 38.0-38.9,adult Z68.38 [place] [address] 07/27/2023 ELLE BORHOT Other obesity due to excess calories E66.09 ; BMI 38.0-38.9,adult Z68.38 ; Essential (primary) hypertension I10 ; Pure hypercholesterolemia, unspecified E78.00 ; Low back pain, unspecified M54.50 ; Other chronic pain G89.29 and Prostate cancer C[address] [facility] [address] [place] [address] 09/23/2023 ELLE LUNSFORD Other obesity due to excess calories E66.09 ; BMI 38.0-38.9,adult Z68.38 ; Essential (primary) hypertension I10 ; Pure hypercholesterolemia, unspecified E78.00 ; Low back pain, unspecified M54.50 ; Other chronic pain G89.29 and Prostate cancer C61 [facility] [address] [place] [address] [facility] [address] [place] [address] [facility] [address] [facility] [address] [place] [address] 06/26/2023 [facility] [address] [place] [address] 07/30/2023 [facility] [address] [place] [address] 08/19/2023 [facility] [address] [place] [address] 09/01/2023 ELLE LUNSFORD ASSESSMENTS Encounter Date Diagnosis Assessment Notes Treatment Notes Treatment Clinical Notes Section Notes 06/29/2023 Other obesity due to excess calories (ICD-10 - E66.09) #Weight Management 06/29/2023 doing well on GLP/GIP Patient feels overall better, clothes are fitting better. Patient tolerating Mounjaro 10mg subq weekly well, no side effects reported and noted appetite suppression. Will increase from Mounjaro 10mg to Mounjaro 12.5mg. Reinforced lifestyle changes with diet and exercise at today's visit. Follow up in 4-6 weeks for further weight management. We are a board certified obesity and weight management practice Patient has trialed behavioral modification, dietary restrictions and exercise for a minimum of 3 months Patient has been found to be obese with a BMI of (38). Patient has class (2) obesity. Patient was reassured and welcomed to the [...] track activity level. Consider using apps like EventBug, myfitnesspal, lose it, stick as needed for self-monitoring and weight management. Consider group exercises. Consider hiring a personal financial representative. Regular exercise is hahn to sustainable health [...] counseling and psychiatry and Dr Livingston at [facility]. We would like to cover regular topics [...] software and direct typing Please excuse inadvertent chip crusher operator or typing errors, or uncorrected word substitutions Although every attempt has been made by the provider to proofread this document, occasional misspellings and typographical errors may still be present Due to the previous pandemic, and the use of personal protective equipment (PPE) This may decrease voice recognition accuracy Inadvertent chip crusher operator errors may occur 07/24/2023 Other obesity due to excess calories (ICD-10 - E66.09) #Weight Management 07/24/2023 doing well on GLP/GIP Patient feels overall better, clothes are fitting better. Patient tolerating Mounjaro 10mg subq weekly well, no side effects reported and noted appetite suppression. Will increase from Mounjaro 10mg to Mounjaro 12.5mg. Reinforced lifestyle changes with diet and exercise at today's visit. Follow up in 4-6 weeks for further weight management. We are a board certified obesity and weight management practice Patient has trialed behavioral modification, dietary restrictions and exercise for a minimum of 3 months Patient has been found to be obese with a BMI of (38). Patient has class (2) obesity. Patient was reassured and welcomed to the [...] track activity level. Consider using apps like EventBug, RRT Globalpal, lose it, stick as needed for self-monitoring and weight management. Consider group exercises. Consider hiring a personal financial representative. Regular exercise is hahn to sustainable health [...] counseling and psychiatry and Dr Livingston at [facility]. We would like to cover regular topics [...] software and direct typing Please excuse inadvertent chip crusher operator or typing errors, or uncorrected word substitutions Although every attempt has been made by the provider to proofread this document, occasional misspellings and typographical errors may still be present Due to the previous pandemic, and the use of personal protective equipment (PPE) This may decrease voice recognition accuracy Inadvertent chip crusher operator errors may occur 07/27/2023 Other obesity due to excess calories (ICD-10 - E66.09) #Weight Management 07/27/2023 doing well on GLP/GIP Patient feels overall [...] track activity level. Consider using apps like EQAL mionute exceModa2Rideise, RRT Globalpal, lose it, stick as needed for self-monitoring and weight management. Consider group exercises. Consider hiring a personal financial representative. Regular exercise is hahn to sustainable health [...] counseling and psychiatry and Dr Livingston at [facility]. We would like to cover regular topics [...] software and direct typing Please excuse inadvertent chip crusher operator or typing errors, or uncorrected word substitutions Although every attempt has been made by the provider to proofread this document, occasional misspellings and typographical errors may still be present Due to the previous pandemic, and the use of personal protective equipment (PPE) This may decrease voice recognition accuracy Inadvertent chip crusher operator errors may occur 07/27/2023 BMI 38.0-38.9,adult (ICD-10 - Z68.38) #Weight Management 07/27/2023 doing well on GLP/GIP Patient feels overall [...] track activity level. Consider using apps like EventBug, R[employer]pal, lose it, stick as needed for self-monitoring and weight management. Consider group exercises. Consider hiring a personal financial representative. Regular exercise is hahn to sustainable health [...] counseling and psychiatry and Dr Livingston at [facility]. We would like to cover regular topics [...] software and direct typing Please excuse inadvertent chip crusher operator or typing errors, or uncorrected word substitutions Although every attempt has been made by the provider to proofread this document, occasional misspellings and typographical errors may still be present Due to the previous pandemic, and the use of personal protective equipment (PPE) This may decrease voice recognition accuracy Inadvertent chip crusher operator errors may occur 09/23/2023 Other obesity due to excess calories [...] track activity level. Consider using apps like EventBug, myfitnesspal, lose it, stick as needed for self-monitoring and weight management. Consider group exercises. Consider hiring a personal financial representative. Regular exercise is hahn to sustainable health [...] counseling and psychiatry and Dr Livingston at [facility]. We would like to cover regular topics [...] software and direct typing Please excuse inadvertent chip crusher operator or typing errors, or uncorrected word substitutions Although every attempt has been made by the provider to proofread this document, occasional misspellings and typographical errors may still be present Due to the previous pandemic, and the use of personal protective equipment (PPE) This may decrease voice recognition accuracy Inadvertent chip crusher operator errors may occur 07/27/2023 Essential (primary) hypertension (ICD-10 - I10) #Weight Management 07/27/2023 doing well on GLP/GIP Patient feels overall [...] track activity level. Consider using apps like EventBug, myfitDecoholicpal, lose it, stick as needed for self-monitoring and weight management. Consider group exercises. Consider hiring a personal financial representative. Regular exercise is hahn to sustainable health [...] counseling and psychiatry and Dr Livingston at [facility]. We would like to cover regular topics [...] software and direct typing Please excuse inadvertent chip crusher operator or typing errors, or uncorrected word substitutions Although every attempt has been made by the provider to proofread this document, occasional misspellings and typographical errors may still be present Due to the previous pandemic, and the use of personal protective equipment (PPE) This may decrease voice recognition accuracy Inadvertent chip crusher operator errors may occur 09/23/2023 BMI 38.0-38.9,adult (ICD-10 [...] track activity level. Consider using apps like EventBug, [employer]Decoholicpal, lose it, stick as needed for self-monitoring and weight management. Consider group exercises. Consider hiring a personal financial representative. Regular exercise is hahn to sustainable health [...] counseling and psychiatry and Dr Livingston at [facility]. We would like to cover regular topics [...] software and direct typing Please excuse inadvertent chip crusher operator or typing errors, or uncorrected word substitutions Although every attempt has been made by the provider to proofread this document, occasional misspellings and typographical errors may still be present Due to the previous pandemic, and the use of personal protective equipment (PPE) This may decrease voice recognition accuracy Inadvertent chip crusher operator errors may occur 07/24/2023 Essential (primary) hypertension (ICD-10 - I10) #Weight Management 07/24/2023 doing well on GLP/GIP Patient feels overall better, clothes are fitting better. Patient tolerating Mounjaro 10mg subq weekly well, no side effects reported and noted appetite suppression. Will increase from Mounjaro 10mg to Mounjaro 12.5mg. Reinforced lifestyle changes with diet and exercise at today's visit. Follow up in 4-6 weeks for further weight management. We are a board certified obesity and weight management practice Patient has trialed behavioral modification, dietary restrictions and exercise for a minimum of 3 months Patient has been found to be obese with a BMI of (38). Patient has class (2) obesity. Patient was reassured and welcomed to the [...] track activity level. Consider using apps like EventBug, myfitnesspal, lose it, stick as needed for self-monitoring and weight management. Consider group exercises. Consider hiring a personal financial representative. Regular exercise is hahn to sustainable health [...] counseling and psychiatry and Dr Livingston at [facility]. We would like to cover regular topics [...] software and direct typing Please excuse inadvertent chip crusher operator or typing errors, or uncorrected word substitutions Although every attempt has been made by the provider to proofread this document, occasional misspellings and typographical errors may still be present Due to the previous pandemic, and the use of personal protective equipment (PPE) This may decrease voice recognition accuracy Inadvertent chip crusher operator errors may occur 06/29/2023 Essential (primary) hypertension (ICD-10 - I10) #Weight Management 06/29/2023 doing well on GLP/GIP Patient feels overall better, clothes are fitting better. Patient tolerating Mounjaro 10mg subq weekly well, no side effects reported and noted appetite suppression. Will increase from Mounjaro 10mg to Mounjaro 12.5mg. Reinforced lifestyle changes with diet and exercise at today's visit. Follow up in 4-6 weeks for further weight management. We are a board certified obesity and weight management practice Patient has trialed behavioral modification, dietary restrictions and exercise for a minimum of 3 months Patient has been found to be obese with a BMI of (38). Patient has class (2) obesity. Patient was reassured and welcomed to the [...] reading books called The Food Rules by Shvi Garcia and Eat Fat Get Lean by [...] track activity level. Consider using apps like EventBug, RRT Globalpal, lose it, stick as needed for self-monitoring and weight management. Consider group exercises. Consider hiring a personal financial representative. Regular exercise is hahn to sustainable health [...] counseling and psychiatry and Dr Livingston at [facility]. We would like to cover regular topics [...] software and direct typing Please excuse inadvertent chip crusher operator or typing errors, or uncorrected word substitutions Although every attempt has been made by the provider to proofread this document, occasional misspellings and typographical errors may still be present Due to the previous pandemic, and the use of personal protective equipment (PPE) This may decrease voice recognition accuracy Inadvertent chip crusher operator errors may occur 06/29/2023 Pure hypercholesterol emia, unspecified (ICD-10 - E78.00) #Weight Management 06/29/2023 doing well on GLP/GIP Patient feels overall better, clothes are fitting better. Patient tolerating Mounjaro 10mg subq weekly well, no side effects reported and noted appetite suppression. Will increase from Mounjaro 10mg to Mounjaro 12.5mg. Reinforced lifestyle changes with diet and exercise at today's visit. Follow up in 4-6 weeks for further weight management. We are a board certified obesity and weight management practice Patient has trialed behavioral modification, dietary restrictions and exercise for a minimum of 3 months Patient has been found to be obese with a BMI of (38). Patient has class (2) obesity. Patient was reassured and welcomed to the [...] track activity level. Consider using apps like EventBug, myfitnesspal, lose it, stick as needed for self-monitoring and weight management. Consider group exercises. Consider hiring a personal financial representative. Regular exercise is hahn to sustainable health [...] counseling and psychiatry and Dr Livingston at [facility]. We would like to cover regular topics [...] software and direct typing Please excuse inadvertent chip crusher operator or typing errors, or uncorrected word substitutions Although every attempt has been made by the provider to proofread this document, occasional misspellings and typographical errors may still be present Due to the previous pandemic, and the use of personal protective equipment (PPE) This may decrease voice recognition accuracy Inadvertent chip crusher operator errors may occur 07/24/2023 Pure hypercholesterol emia, unspecified (ICD-10 - E78.00) #Weight Management 07/24/2023 doing well on GLP/GIP Patient feels overall better, clothes are fitting better. Patient tolerating Mounjaro 10mg subq weekly well, no side effects reported and noted appetite suppression. Will increase from Mounjaro 10mg to Mounjaro 12.5mg. Reinforced lifestyle changes with diet and exercise at today's visit. Follow up in 4-6 weeks for further weight management. We are a board certified obesity and weight management practice Patient has trialed behavioral modification, dietary restrictions and exercise for a minimum of 3 months Patient has been found to be obese with a BMI of (38). Patient has class (2) obesity. Patient was reassured and welcomed to the [...] track activity level. Consider using apps like EventBug, RRT Globalpal, lose it, stick as needed for self-monitoring and weight management. Consider group exercises. Consider hiring a personal financial representative. Regular exercise is hahn to sustainable health [...] counseling and psychiatry and Dr Livingston at [facility]. We would like to cover regular topics [...] software and direct typing Please excuse inadvertent chip crusher operator or typing errors, or uncorrected word substitutions Although every attempt has been made by the provider to proofread this document, occasional misspellings and typographical errors may still be present Due to the previous pandemic, and the use of personal protective equipment (PPE) This may decrease voice recognition accuracy Inadvertent chip crusher operator errors may occur 07/27/2023 Pure hypercholesterol emia, unspecified (ICD-10 - E78.00) #Weight Management 07/27/2023 doing well on GLP/GIP Patient feels overall [...] track activity level. Consider using apps like EventBug, RRT Globalpal, lose it, stick as needed for self-monitoring and weight management. Consider group exercises. Consider hiring a personal financial representative. Regular exercise is hahn to sustainable health [...] counseling and psychiatry and Dr Livingston at [facility]. We would like to cover regular topics [...] software and direct typing Please excuse inadvertent chip crusher operator or typing errors, or uncorrected word substitutions Although every attempt has been made by the provider to proofread this document, occasional misspellings and typographical errors may still be present Due to the previous pandemic, and the use of personal protective equipment (PPE) This may decrease voice recognition accuracy Inadvertent chip crusher operator errors may occur 09/23/2023 Essential (primary) hypertension [...] track activity level. Consider using apps like EventBug, RRT Globalpal, lose it, stick as needed for self-monitoring and weight management. Consider group exercises. Consider hiring a personal financial representative. Regular exercise is hahn to sustainable health [...] counseling and psychiatry and Dr Livingston at [facility]. We would like to cover regular topics [...] software and direct typing Please excuse inadvertent chip crusher operator or typing errors, or uncorrected word substitutions Although every attempt has been made by the provider to proofread this document, occasional misspellings and typographical errors may still be present Due to the previous pandemic, and the use of personal protective equipment (PPE) This may decrease voice recognition accuracy Inadvertent chip crusher operator errors may occur 09/23/2023 Pure hypercholesterol emia, [...] track activity level. Consider using apps like EventBug, myfitnesspal, lose it, stick as needed for self-monitoring and weight management. Consider group exercises. Consider hiring a personal financial representative. Regular exercise is hahn to sustainable health [...] counseling and psychiatry and Dr Livingston at [facility]. We would like to cover regular topics [...] software and direct typing Please excuse inadvertent chip crusher operator or typing errors, or uncorrected word substitutions Although every attempt has been made by the provider to proofread this document, occasional misspellings and typographical errors may still be present Due to the previous pandemic, and the use of personal protective equipment (PPE) This may decrease voice recognition accuracy Inadvertent chip crusher operator errors may occur 07/27/2023 Low back pain, unspecified (ICD-10 - M54.50) #Weight Management 07/27/2023 doing well on GLP/GIP Patient feels overall [...] track activity level. Consider using apps like EventBug, myfitnesspal, lose it, stick as needed for self-monitoring and weight management. Consider group exercises. Consider hiring a personal financial representative. Regular exercise is hahn to sustainable health [...] counseling and psychiatry and Dr Livingston at [facility]. We would like to cover regular topics [...] software and direct typing Please excuse inadvertent chip crusher operator or typing errors, or uncorrected word substitutions Although every attempt has been made by the provider to proofread this document, occasional misspellings and typographical errors may still be present Due to the previous pandemic, and the use of personal protective equipment (PPE) This may decrease voice recognition accuracy Inadvertent chip crusher operator errors may occur 07/24/2023 Low back pain, unspecified (ICD-10 - M54.50) #Weight Management 07/24/2023 doing well on GLP/GIP Patient feels overall better, clothes are fitting better. Patient tolerating Mounjaro 10mg subq weekly well, no side effects reported and noted appetite suppression. Will increase from Mounjaro 10mg to Mounjaro 12.5mg. Reinforced lifestyle changes with diet and exercise at today's visit. Follow up in 4-6 weeks for further weight management. We are a board certified obesity and weight management practice Patient has trialed behavioral modification, dietary restrictions and exercise for a minimum of 3 months Patient has been found to be obese with a BMI of (38). Patient has class (2) obesity. Patient was reassured and welcomed to the [...] track activity level. Consider using apps like EventBug, RRT [employer]pal, lose it, stick as needed for self-monitoring and weight management. Consider group exercises. Consider hiring a personal financial representative. Regular exercise is hahn to sustainable health [...] counseling and psychiatry and Dr Livingston at [facility]. We would like to cover regular topics [...] software and direct typing Please excuse inadvertent chip crusher operator or typing errors, or uncorrected word substitutions Although every attempt has been made by the provider to proofread this document, occasional misspellings and typographical errors may still be present Due to the previous pandemic, and the use of personal protective equipment (PPE) This may decrease voice recognition accuracy Inadvertent chip crusher operator errors may occur 06/29/2023 Low back pain, unspecified (ICD-10 - M54.50) #Weight Management 06/29/2023 doing well on GLP/GIP Patient feels overall better, clothes are fitting better. Patient tolerating Mounjaro 10mg subq weekly well, no side effects reported and noted appetite suppression. Will increase from Mounjaro 10mg to Mounjaro 12.5mg. Reinforced lifestyle changes with diet and exercise at today's visit. Follow up in 4-6 weeks for further weight management. We are a board certified obesity and weight management practice Patient has trialed behavioral modification, dietary restrictions and exercise for a minimum of 3 months Patient has been found to be obese with a BMI of (38). Patient has class (2) obesity. Patient was reassured and welcomed to the [...] track activity level. Consider using apps like EventBug, RRT Globalpal, lose it, stick as needed for self-monitoring and weight management. Consider group exercises. Consider hiring a personal financial representative. Regular exercise is hahn to sustainable health [...] counseling and psychiatry and Dr Livingston at [facility]. We would like to cover regular topics [...] software and direct typing Please excuse inadvertent chip crusher operator or typing errors, or uncorrected word substitutions Although every attempt has been made by the provider to proofread this document, occasional misspellings and typographical errors may still be present Due to the previous pandemic, and the use of personal protective equipment (PPE) This may decrease voice recognition accuracy Inadvertent chip crusher operator errors may occur 06/29/2023 Other chronic pain (ICD-10 - G89.29) #Weight Management 06/29/2023 doing well on GLP/GIP Patient feels overall better, clothes are fitting better. Patient tolerating Mounjaro 10mg subq weekly well, no side effects reported and noted appetite suppression. Will increase from Mounjaro 10mg to Mounjaro 12.5mg. Reinforced lifestyle changes with diet and exercise at today's visit. Follow up in 4-6 weeks for further weight management. We are a board certified obesity and weight management practice Patient has trialed behavioral modification, dietary restrictions and exercise for a minimum of 3 months Patient has been found to be obese with a BMI of (38). Patient has class (2) obesity. Patient was reassured and welcomed to the [...] track activity level. Consider using apps like EventBug, RRT [employer]pal, lose it, stick as needed for self-monitoring and weight management. Consider group exercises. Consider hiring a personal financial representative. Regular exercise is hahn to sustainable health [...] counseling and psychiatry and Dr Livingston at [facility]. We would like to cover regular topics [...] software and direct typing Please excuse inadvertent chip crusher operator or typing errors, or uncorrected word substitutions Although every attempt has been made by the provider to proofread this document, occasional misspellings and typographical errors may still be present Due to the previous pandemic, and the use of personal protective equipment (PPE) This may decrease voice recognition accuracy Inadvertent chip crusher operator errors may occur 07/27/2023 Other chronic pain (ICD-10 - G89.29) #Weight Management 07/27/2023 doing well on GLP/GIP Patient feels overall [...] track activity level. Consider using apps like [employer]Re[employer], myfitnesspal, lose it, stick as needed for self-monitoring and weight management. Consider group exercises. Consider hiring a personal financial representative. Regular exercise is hahn to sustainable health [...] counseling and psychiatry and Dr Livingston at [facility]. We would like to cover regular topics [...] software and direct typing Please excuse inadvertent chip crusher operator or typing errors, or uncorrected word substitutions Although every attempt has been made by the provider to proofread this document, occasional misspellings and typographical errors may still be present Due to the previous pandemic, and the use of personal protective equipment (PPE) This may decrease voice recognition accuracy Inadvertent chip crusher operator errors may occur 07/24/2023 Other chronic pain (ICD-10 - G89.29) #Weight Management 07/24/2023 doing well on GLP/GIP Patient feels overall better, clothes are fitting better. Patient tolerating Mounjaro 10mg subq weekly well, no side effects reported and noted appetite suppression. Will increase from Mounjaro 10mg to Mounjaro 12.5mg. Reinforced lifestyle changes with diet and exercise at today's visit. Follow up in 4-6 weeks for further weight management. We are a board certified obesity and weight management practice Patient has trialed behavioral modification, dietary restrictions and exercise for a minimum of 3 months Patient has been found to be obese with a BMI of (38). Patient has class (2) obesity. Patient was reassured and welcomed to the [...] track activity level. Consider using apps like EventBug, RRT [employer]pal, lose it, stick as needed for self-monitoring and weight management. Consider group exercises. Consider hiring a personal financial representative. Regular exercise is hahn to sustainable health [...] counseling and psychiatry and Dr Livingston at [facility]. We would like to cover regular topics [...] software and direct typing Please excuse inadvertent chip crusher operator or typing errors, or uncorrected word substitutions Although every attempt has been made by the provider to proofread this document, occasional misspellings and typographical errors may still be present Due to the previous pandemic, and the use of personal protective equipment (PPE) This may decrease voice recognition accuracy Inadvertent chip crusher operator errors may occur 09/23/2023 Low back pain, [...] track activity level. Consider using apps like EventBug, RRT [employer]pal, lose it, stick as needed for self-monitoring and weight management. Consider group exercises. Consider hiring a personal financial representative. Regular exercise is hahn to sustainable health [...] counseling and psychiatry and Dr Livingston at [facility]. We would like to cover regular topics [...] software and direct typing Please excuse inadvertent chip crusher operator or typing errors, or uncorrected word substitutions Although every attempt has been made by the provider to proofread this document, occasional misspellings and typographical errors may still be present Due to the previous pandemic, and the use of personal protective equipment (PPE) This may decrease voice recognition accuracy Inadvertent chip crusher operator errors may occur 07/27/2023 Prostate cancer (ICD-10 - C61) #Weight Management 07/27/2023 doing well on GLP/GIP Patient feels overall [...] track activity level. Consider using apps like EventBug, R[employer]pal, lose it, stick as needed for self-monitoring and weight management. Consider group exercises. Consider hiring a personal financial representative. Regular exercise is hahn to sustainable health [...] counseling and psychiatry and Dr Livingston at [facility]. We would like to cover regular topics [...] software and direct typing Please excuse inadvertent chip crusher operator or typing errors, or uncorrected word substitutions Although every attempt has been made by the provider to proofread this document, occasional misspellings and typographical errors may still be present Due to the previous pandemic, and the use of personal protective equipment (PPE) This may decrease voice recognition accuracy Inadvertent chip crusher operator errors may occur 09/23/2023 Other chronic pain [...] track activity level. Consider using apps like [employer]AL mionEffiCity excercise, myfitnesspal, lose it, stick as needed for self-monitoring and weight management. Consider group exercises. Consider hiring a personal financial representative. Regular exercise is hahn to sustainable health [...] counseling and psychiatry and Dr Livingston at [facility]. We would like to cover regular topics [...] software and direct typing Please excuse inadvertent chip crusher operator or typing errors, or uncorrected word substitutions Although every attempt has been made by the provider to proofread this document, occasional misspellings and typographical errors may still be present Due to the previous pandemic, and the use of personal protective equipment (PPE) This may decrease voice recognition accuracy Inadvertent chip crusher operator errors may occur 07/24/2023 Prostate cancer (ICD-10 - C61) #Weight Management 07/24/2023 doing well on GLP/GIP Patient feels overall better, clothes are fitting better. Patient tolerating Mounjaro 10mg subq weekly well, no side effects reported and noted appetite suppression. Will increase from Mounjaro 10mg to Mounjaro 12.5mg. Reinforced lifestyle changes with diet and exercise at today's visit. Follow up in 4-6 weeks for further weight management. We are a board certified obesity and weight management practice Patient has trialed behavioral modification, dietary restrictions and exercise for a minimum of 3 months Patient has been found to be obese with a BMI of (38). Patient has class (2) obesity. Patient was reassured and welcomed to the [...] track activity level. Consider using apps like EventBug, myfitDecoholicpal, lose it, stick as needed for self-monitoring and weight management. Consider group exercises. Consider hiring a personal financial representative. Regular exercise is hahn to sustainable health [...] counseling and psychiatry and Dr Livingston at [facility]. We would like to cover regular topics [...] software and direct typing Please excuse inadvertent chip crusher operator or typing errors, or uncorrected word substitutions Although every attempt has been made by the provider to proofread this document, occasional misspellings and typographical errors may still be present Due to the previous pandemic, and the use of personal protective equipment (PPE) This may decrease voice recognition accuracy Inadvertent chip crusher operator errors may occur 06/29/2023 Prostate cancer (ICD-10 - C61) #Weight Management 06/29/2023 doing well on GLP/GIP Patient feels overall better, clothes are fitting better. Patient tolerating Mounjaro 10mg subq weekly well, no side effects reported and noted appetite suppression. Will increase from Mounjaro 10mg to Mounjaro 12.5mg. Reinforced lifestyle changes with diet and exercise at today's visit. Follow up in 4-6 weeks for further weight management. We are a board certified obesity and weight management practice Patient has trialed behavioral modification, dietary restrictions and exercise for a minimum of 3 months Patient has been found to be obese with a BMI of (38). Patient has class (2) obesity. Patient was reassured and welcomed to the [...] track activity level. Consider using apps like EventBug, myfitDecoholicpal, lose it, stick as needed for self-monitoring and weight management. Consider group exercises. Consider hiring a personal financial representative. Regular exercise is hahn to sustainable health [...] counseling and psychiatry and Dr Livingston at [facility]. We would like to cover regular topics [...] software and direct typing Please excuse inadvertent chip crusher operator or typing errors, or uncorrected word substitutions Although every attempt has been made by the provider to proofread this document, occasional misspellings and typographical errors may still be present Due to the previous pandemic, and the use of personal protective equipment (PPE) This may decrease voice recognition accuracy Inadvertent chip crusher operator errors may occur 06/29/2023 BMI 38.0-38.9,adult (ICD-10 - Z68.38) #Weight Management 06/29/2023 doing well on GLP/GIP Patient feels overall better, clothes are fitting better. Patient tolerating Mounjaro 10mg subq weekly well, no side effects reported and noted appetite suppression. Will increase from Mounjaro 10mg to Mounjaro 12.5mg. Reinforced lifestyle changes with diet and exercise at today's visit. Follow up in 4-6 weeks for further weight management. We are a board certified obesity and weight management practice Patient has trialed behavioral modification, dietary restrictions and exercise for a minimum of 3 months Patient has been found to be obese with a BMI of (38). Patient has class (2) obesity. Patient was reassured and welcomed to the [...] track activity level. Consider using apps like EventBug, myfitDecoholicpal, lose it, stick as needed for self-monitoring and weight management. Consider group exercises. Consider hiring a personal financial representative. Regular exercise is ahhn to sustainable health and prevents as a [...] counseling and psychiatry and Dr Livingston at [facility]. We would like to cover regular topics [...] software and direct typing Please excuse inadvertent chip crusher operator or typing errors, or uncorrected word substitutions Although every attempt has been made by the provider to proofread this document, occasional misspellings and typographical errors may still be present Due to the previous pandemic, and the use of personal protective equipment (PPE) This may decrease voice recognition accuracy Inadvertent chip crusher operator errors may occur 07/24/2023 BMI 38.0-38.9,adult (ICD-10 - Z68.38) #Weight Management 07/24/2023 doing well on GLP/GIP Patient feels overall better, clothes are fitting better. Patient tolerating Mounjaro 10mg subq weekly well, no side effects reported and noted appetite suppression. Will increase from Mounjaro 10mg to Mounjaro 12.5mg. Reinforced lifestyle changes with diet and exercise at today's visit. Follow up in 4-6 weeks for further weight management. We are a board certified obesity and weight management practice Patient has trialed behavioral modification, dietary restrictions and exercise for a minimum of 3 months Patient has been found to be obese with a BMI of (38). Patient has class (2) obesity. Patient was reassured and welcomed to the [...] track activity level. Consider using apps like EventBug, RRT Globalpal, lose it, stick as needed for self-monitoring and weight management. Consider group exercises. Consider hiring a personal financial representative. Regular exercise is hahn to sustainable health [...] counseling and psychiatry and Dr Livingston at [facility]. We would like to cover regular topics [...] software and direct typing Please excuse inadvertent chip crusher operator or typing errors, or uncorrected word substitutions Although every attempt has been made by the provider to proofread this document, occasional misspellings and typographical errors may still be present Due to the previous pandemic, and the use of personal protective equipment (PPE) This may decrease voice recognition accuracy Inadvertent chip crusher operator errors may occur 09/23/2023 Prostate cancer (ICD-10 [...] track activity level. Consider using apps like EventBug, RRT Globalpal, lose it, stick as needed for self-monitoring and weight management. Consider group exercises. Consider hiring a personal financial representative. Regular exercise is hahn to sustainable health [...] counseling and psychiatry and Dr Livingston at [facility]. We would like to cover regular topics [...] software and direct typing Please excuse inadvertent chip crusher operator or typing errors, or uncorrected word substitutions Although every attempt has been made by the provider to proofread this document, occasional misspellings and typographical errors may still be present Due to the previous pandemic, and the use of personal protective equipment (PPE) This may decrease voice recognition accuracy Inadvertent chip crusher operator errors may occur PLAN OF TREATMENT No Information Insurance Providers Payer Name Payer Address Payer Phone Subscriber Number Group Number Insured Name Patient Relationship to Insured Coverage Start Date Coverage End Date [facility] [address] [place] [address] [id number] Kvng Chavez Self - patient is the insured 3 Medicare Part B [id number] [address] [place] [address] [id number] Kvng Chavez Self - patient is the insured 3 MEDICATIONS ADMINISTERED Medication Instructions Date of Administration Dosage Notes MICC B12 INJECTION 05/05/2022 1 MICC B12 INJECTION 05/19/2022 MICC B12 INJECTION 06/03/2022 MICC B12 INJECTION 07/03/2022 1 MICC B12 INJECTION 07/14/2022 MICC B12 INJECTION 07/21/2022 MICC B12 INJECTION 07/28/2022 1 MICC B12 INJECTION 08/05/2022 MICC B12 INJECTION 08/11/2022 MICC B12 INJECTION 08/18/2022 MICC B12 INJECTION 08/26/2022 1 MICC B12 INJECTION 09/02/2022 MICC B12 INJECTION 09/08/2022 MICC B12 INJECTION 09/15/2022 MICC B12 INJECTION 09/22/2022 1 ug MICC B12 INJECTION 09/29/2022 MICC B12 INJECTION 10/06/2022 1 mg MICC B12 INJECTION 10/13/2022 1 mg MICC B12 INJECTION 10/20/2022 1 mg MICC B12 INJECTION 10/27/2022 1 mg MICC B12 INJECTION 11/03/2022 1 mL MICC B12 INJECTION 11/11/2022 MICC B12 INJECTION 11/17/2022 MICC B12 INJECTION 11/24/2022 1 mL MICC B12 INJECTION 12/03/2022 MICC B12 INJECTION 12/09/2022 MICC B12 INJECTION 01/12/2023 MICC B12 INJECTION 02/05/2023 MICC B12 INJECTION 03/31/2023 MICC B12 INJECTION 05/13/2023 1 mg MICC B12 INJECTION 05/25/2023 MICC B12 INJECTION 06/10/2023 1 mg MEDICAL (GENERAL) HISTORY Medical History History ICD Code asthma prostate cancer hyperlipidemia hypertension chronic back pain Surgical History Surgery Date(Month/Year) right knee arthroscopy prostatectomy back surgery
--- OUTSIDE RECORDS SUMMARY | 2024-06-22 15:10 | XMS_ITS | Encounter Summary ---
Author Organization [facility] Address [address] [place] [address] Care Team Providers Care Research Interviewer Name Role Phone Amee Sarabia MD Primary Care Provider Reason for Visit * Reason Comments Appointment infertility Encounter Details Date Type Department Care Team (Late st Contact Info) Description 12/30/2019 Telephone [facility] Urologic Surgery [address] [phone] Raj Rascon MD [address] [address] Appointment (infertility) Social History Tobacco Use Types Packs/Day Years Used Date Smoking Tobacco: Never Assessed Sex and Gender Information Value Date Recorded Sex Assigned at Not on file Legal Sex Male 4:15 PM EDT Gender Identity Not on file Sexual Orientation Not on file COVID-19 Exposure Response Date Recorded In the last month, have you been in contact with someone who was confirmed or suspected to have Coronavirus / COVID-19? Unable to assess 12/30/2019 4:26 PM EDT documented as of this encounter Miscellaneous Notes * Telephone Encounter - Rebecca Ramirez - 01/13/2020 1:03 PM EST [place] [id number] * Telephone Encounter - Rebecca Ramirez - 01/05/2020 1:41 PM EDT lvm [place] [id number] documented in this encounter Plan of Treatment Not on file documented as of this encounter Visit Diagnoses Not on filedocumented in this encounter Care Teams Research Interviewer Relationship Specialty Start Date End Date Amee Sarabia MD [address] [place] [id number] PCP - General Internal Medicine 12/30/19 documented as of this encounter
== END 2024-06-22 13:24 | disposition home or self-care (01) ==
LOC: HO.PMC 12:48
PROVIDERS: PCP Internal Medicine; Visit Provider Anesthesiology
DX: M96.1 Postlaminectomy syndrome, not elsewhere classified (principal); C61 Malignant neoplasm of prostate; C79.51 Secondary malignant neoplasm of bone; M54.16 Radiculopathy, lumbar region; G89.4 Chronic pain syndrome
CPT/HCPCS: 99214

== ENCOUNTER → 2024-06-22 12:48 | Outpatient (BNVA) | payer OTHER, MEDICARE, SELFPAY | PROVIDERS: PCP Internal Medicine; Visit Provider Anesthesiology ==